=== PATIENT | female | born 1950 | race Caucasian/White ===

== ENCOUNTER 2017-03-02 07:22 | Inpatient (IN) | payer MEDICARE ==
[~2017-03-02] VITALS: Ht 180.3 cm; Wt 72.8 kg
[2017-03-02] VITALS (15 sets, daily range): BP systolic 84–115; BP diastolic 52–63; PULSE 75–114; RESP 14–20; TEMP 97.5–98.7; O2SAT 94–100
[~2017-03-02 07:22] MED LIST: URSO300
[2017-03-02] MEDS ORDERED: SODIUM CHLORIDE 0.9% FLUSH 10 ML FLUSH IVF PRN ×2 (07:45)
[2017-03-02] MEDS ORDERED: DILTIAZEM HCL 25 MG/5 ML VIAL IV PUSH ONE (07:45)
[2017-03-02] MEDS ORDERED: SODIUM CHLOR 0.9% 1000 ML INJ 1,000 ML IV ONE (07:45)
--- NOTE | 2017-03-02 07:46 | PD ---
HPI Chief Complaint: Cardiac Complaint Time Seen by Provider: 07:42 Travel History International Travel<30 days: No Contact w/Intl Traveler<30days: No Traveled to known affect area: No History of Present Illness HPI 66-year-old female with history of polymyalgia rheumatica and Mnire's disease , presents to the ER today with dizziness starting this morning, had a syncopal episode when she tried to get out of bed. She hit her head on the kitchen floor according to her . She currently states that she is not feeling well, very lightheaded. She denies any chest pains, shortness of breath, or any other symptoms. Modifying Factors: None Associated Signs & Symptoms: Dizziness, syncope Risk Factors: None PFSH Social History Alcohol Use: Yes Tobacco Use: No Allergies-Medications (Allergen,Severity, Reaction): Coded Allergies: No Known Allergies (Verified , 03/02/17) Reported Meds & Prescriptions Reported Meds & Active Scripts Active Reported Actigall (Ursodiol) 300 Mg Cap Review of Systems Except as stated in HPI: all other systems reviewed are Neg Physical Exam Narrative GENERAL: Well-developed elderly white female patient currently in moderate distress. Awake and oriented 3. SKIN: Focused skin assessment warm/dry. HEAD: Atraumatic. Normocephalic. EYES: Pupils equal and round. No scleral icterus. No injection or drainage. ENT: No nasal bleeding or discharge. Mucous membranes pink and moist. NECK: Trachea midline. No JVD. CARDIOVASCULAR: Fast and irregularly irregular. RESPIRATORY: No accessory muscle use. Clear to auscultation. Breath sounds equal bilaterally. GASTROINTESTINAL: Abdomen soft, non-tender, nondistended. Hepatic and splenic margins not palpable. MUSCULOSKELETAL: No obvious deformities. No clubbing. No cyanosis. No edema. NEUROLOGICAL: Awake and alert. No obvious cranial nerve deficits. Motor grossly within normal limits. Normal speech. PSYCHIATRIC: Appropriate mood and affect; insight and judgment normal. Data Data Last Documented VS Vital Signs Date Time Temp Pulse Resp B/P Pulse Ox O2 Delivery O2 Flow Rate FiO2 03/02/17 09:20 93 17 84/53 100 Nasal Cannula 2 03/02/17 07:34 97.5 Orders Complete Blood Count With Diff (03/02/17 07:35) Comprehensive Metabolic Panel (03/02/17 07:35) Magnesium (Mg) (03/02/17 07:35) Ckmb (Isoenzyme) Profile (03/02/17 07:35) Troponin I (03/02/17 07:35) Act Partial Throm Time (Ptt) (03/02/17 07:35) Prothrombin Time / Inr (Pt) (03/02/17 07:35) Urinalysis - C+S If Indicated (03/02/17 07:35) Chest, Single Ap (03/02/17 07:35) Ecg Monitoring (03/02/17 07:35) Iv Access Insert/Monitor (03/02/17 07:35) Oximetry (03/02/17 07:35) Sodium Chloride 0.9% Flush (Ns Flush) (03/02/17 07:45) Ct Brain W/O Iv Contrast(Rout) (03/02/17 07:42) Sodium Chlor 0.9% 1000 Ml Inj (Ns 1000 M (03/02/17 07:45) Diltiazem Inj (Cardizem Inj) (03/02/17 07:45) Diltiazem Inj (Cardizem Inj) (03/02/17 07:45) Sodium Chloride 0.9% Flush (Ns Flush) (03/02/17 07:45) Consult Neurosurgery (03/02/17 ) Ns + Kcl 20 Meq Inj (Ns + Kcl 20 Meq Inj (03/02/17 09:15) Admit Order (Ed Use Only) (03/02/17 09:29) Labs Laboratory Tests Test 03/02/17 03/02/17 08:10 08:55 White Blood Count 7.6 TH/MM3 Red Blood Count 4.44 MIL/MM3 Hemoglobin 14.0 GM/DL Hematocrit 39.8 % Mean Corpuscular Volume 89.6 FL Mean Corpuscular Hemoglobin 31.5 PG Mean Corpuscular Hemoglobin 35.2 % Concent Red Cell Distribution Width 13.2 % Platelet Count 241 TH/MM3 Mean Platelet Volume 8.8 FL Neutrophils (%) (Auto) 61.7 % Lymphocytes (%) (Auto) 27.5 % Monocytes (%) (Auto) 7.8 % Eosinophils (%) (Auto) 2.3 % Basophils (%) (Auto) 0.7 % Neutrophils # (Auto) 4.7 TH/MM3 Lymphocytes # (Auto) 2.1 TH/MM3 Monocytes # (Auto) 0.6 TH/MM3 Eosinophils # (Auto) 0.2 TH/MM3 Basophils # (Auto) 0.1 TH/MM3 CBC Comment DIFF FINAL Differential Comment Prothrombin Time 11.6 SEC Prothromb Time International 1.0 RATIO Ratio Activated Partial 26.0 SEC Thromboplast Time Sodium Level 145 MEQ/L Potassium Level 3.3 MEQ/L Chloride Level 114 MEQ/L Carbon Dioxide Level 17.9 MEQ/L Anion Gap 13 MEQ/L Blood Urea Nitrogen 20 MG/DL Creatinine 0.73 MG/DL Estimat Glomerular Filtration 80 ML/MIN Rate Random Glucose 91 MG/DL Calcium Level 7.8 MG/DL Magnesium Level 1.7 MG/DL Total Bilirubin 0.3 MG/DL Aspartate Amino Transf 19 U/L (AST/SGOT) Alanine Aminotransferase 17 U/L (ALT/SGPT) Alkaline Phosphatase 40 U/L Total Creatine Kinase 88 U/L Troponin I 0.10 NG/ML Total Protein 5.5 GM/DL Albumin 2.9 GM/DL Urine Color YELLOW Urine Turbidity CLEAR Urine pH 7.0 Urine Specific [place] 1.011 Urine Protein NEG mg/dL Urine Glucose (UA) NEG mg/dL Urine Ketones 10 mg/dL Urine Occult Blood TRACE Urine Nitrite NEG Urine Bilirubin NEG Urine Urobilinogen LESS THAN 2.0 MG/DL Urine Leukocyte Esterase NEG Urine RBC 2 /hpf Urine WBC 1 /hpf Urine Squamous Epithelial 2 /hpf Cells Urine Bacteria RARE /hpf Urine Mucus FEW /lpf Microscopic Urinalysis Comment CULT NOT INDICATED MDM Medical Decision Making Medical Screen Exam Complete: Yes Emergency Medical Condition: Yes Medical Record Reviewed: Yes Interpretation(s) EKG shows A. fib with rapid ventricular response at a rate of 130 bpm. No signs of acute ST-T changes. Laboratory Tests Test 03/02/17 08:10 Potassium Level 3.3 MEQ/L (3.5-5.1) Chloride Level 114 MEQ/L (98-107) Carbon Dioxide Level 17.9 MEQ/L (21.0-32.0) Blood Urea Nitrogen 20 MG/DL (7-18) Estimat Glomerular Filtration 80 ML/MIN (>89) Rate Calcium Level 7.8 MG/DL (8.5-10.1) Alkaline Phosphatase 40 U/L (45-117) Troponin I 0.10 NG/ML (0.02-0.05) Total Protein 5.5 GM/DL (6.4-8.2) Albumin 2.9 GM/DL (3.4-5.0) Last [address] 03/02/1742 Signed Impressions: Service Date/Time: Thursday, March 02, 2017 08:33 - CONCLUSION: 1. Minimal probable subarachnoid hemorrhage right frontal extra-axial space. 2. No midline shift. 3. Nonspecific white matter changes. Alex Evans MD Chest X-Ray 03/02/1735 Signed Impressions: Service Date/Time: Thursday, March 02, 2017 07:48 - CONCLUSION: No acute disease. Alex Evans MD Differential Diagnosis Dizziness, syncopedysrhythmias versus dehydration versus metabolic issues versus acute intracranial processes versus Mnire's disease Narrative Course Lab work shows mild hypokalemia potassium was given IV in the ER. EKG shows A. fib with rapid ventricular response, Cardizem was given with good rate control. IV fluids were given for her hypotension. Her CAT scan shows acute intracranial subarachnoid bleed which is noted to be small. Case was discussed with Dr. Hererra who would like the patient admitted to critical care unit and with consult to him. Case was discussed with Dr. Al for admission to critical care unit. Aggregate critical care time was 25 minutes. Time to perform other separately billable procedures was not included in the critical care time. My time did not include minutes spent treating any other patients simultaneously or on activities that did not directly contribute to the patient's treatment. The services I provided to this patient were to treat and/or prevent clinically significant deterioration that could result in: Worsening dysrhythmias, ICH, herniation, I provided critical care services requiring my management, as noted below: Chart data review, documentation time, medication orders and management, vital sign assessments/reviewing monitor data, ordering and reviewing lab tests, ordering and interpreting/reviewing x-rays and diagnostic studies, care of the patient and discussion of the patient with the admitting physicians. Diagnosis Primary Impression: Syncope Additional Impressions: New onset a-fib Subarachnoid hemorrhage Admitting Information Admitting Physician Requests: Admit Lucia Corley MD March 02, 2017 07:46
--- NOTE | 2017-03-02 08:37 | RADRPT ---
EXAM DATE/TIME: 03/02/2017 07:48 [facility] COMPARISON: No previous studies available for comparison. INDICATIONS : Palpitations, fever, nausea, and dizziness. MEDICAL HISTORY : None. SURGICAL HISTORY : None. ENCOUNTER: Initial ACUITY: 1 day PAIN SCORE: 0/10 LOCATION: Bilateral chest FINDINGS: A single view of the chest demonstrates the lungs to be symmetrically aerated without evidence of mas s, infiltrate or effusion. The cardiomediastinal contours are unremarkable. Osseous structures are intact. CONCLUSION: No acute disease. Alex Evans MD on March 02, 2017 at 8:35 Board Certified Radiologist. This report was verified electronically.
--- NOTE | 2017-03-02 08:45 | RADRPT ---
EXAM DATE/TIME: 03/02/2017 08:33 [facility] COMPARISON: No previous studies available for comparison. INDICATIONS : Syncope along with fall last night. Hit back of head. RADIATION DOSE: 38.28 CTDIvol (mGy) MEDICAL HISTORY : None SURGICAL HISTORY : None. ENCOUNTER: Initial ACUITY: 1 day PAIN SCALE: 0/10 LOCATION: cranial TECHNIQUE: Multiple contiguous axial images were obtained of the head. Using automated exposure control and adj ustment of the mA and/or kV according to patient size, radiation dose was kept as low as reasonably a chievable to obtain optimal diagnostic quality images. FINDINGS: CEREBRUM: Minimal extra-axial high density in the right frontal extra-axial space may be some minimal subarachn oid hemorrhage. Scattered areas of low attenuation throughout the white matter. The ventricles are no rmal for age. No evidence of midline shift, mass lesion, hemorrhage or acute infarction. No extra-a xial fluid collections are seen. POSTERIOR FOSSA: The cerebellum and brainstem are intact. The 4th ventricle is midline. The cerebellopontine angle i s unremarkable. EXTRACRANIAL: The visualized portion of the orbits is intact. SKULL: The calvaria is intact. No evidence of skull fracture. CONCLUSION: 1. Minimal probable subarachnoid hemorrhage right frontal extra-axial space. 2. No midline shift. 3. Nonspecific white matter changes. Alex Evans MD on March 02, 2017 at 8:42 Board Certified Radiologist. This report was verified electronically.
[2017-03-02] MEDS: DILTIAZEM INJ 125 MG in SODIUM CHLORIDE 0.9% INJ 100 ML IV SCH ×2 (08:46→10:03)
[2017-03-02 08:47] LABS: AUTOMATED NEUTROPHIL # 4.7 TH/MM3 (1.8-7.7); BASOPHIL # 0.1 TH/MM3 (0-0.2); BASOPHIL % 0.7 % (0.0-2.0); EOSINOPHIL # 0.2 TH/MM3 (0-0.4); EOSINOPHIL % 2.3 % (0.0-4.0); HEMATOCRIT 39.8 % (35.0-46.0); HEMO FLAGS DIFF FINAL; LYMPH % 27.5 % (9.0-44.0); LYMPHOCYTE # 2.1 TH/MM3 (1.0-4.8); MEAN CELL VOLUME 89.6 FL (80.0-100.0); MEAN CORPUSCULAR HEMOGLOBIN 31.5 PG (27.0-34.0); MEAN CORPUSCULAR HGB CONC 35.2 % (32.0-36.0); MONO % 7.8 % (0.0-8.0); NEUT % 61.7 % (16.0-70.0); PLATELET COUNT 241 TH/MM3 (150-450); RED BLOOD COUNT 4.44 MIL/MM3 (4.00-5.30); RED CELL DISTRIBUTION WIDTH 13.2 % (11.6-17.2); WHITE BLOOD COUNT 7.6 TH/MM3 (4.0-11.0)
[2017-03-02 08:55] LABS: PROTHROMBIN TIME - PATIENT 11.6 SEC (9.8-11.6)
[2017-03-02 09:03] LABS: ANION GAP 13 MEQ/L (5-15); AST (GOT) 19 U/L (15-37); BICARBONATE 17.9 MEQ/L (21.0-32.0); BLOOD UREA NITROGEN 20 MG/DL (7-18); CHLORIDE 114 MEQ/L (98-107); GLOMERULAR FILTRATION RATE 80 ML/MIN (>89); MAGNESIUM 1.7 MG/DL (1.5-2.5); POTASSIUM 3.3 MEQ/L (3.5-5.1); SODIUM (NA) 145 MEQ/L (136-145)
[2017-03-02 09:08] LABS: ALKALINE PHOSPHATASE 40 U/L (45-117); ALT (GPT) 17 U/L (10-53); TOTAL BILIRUBIN ADULT 0.3 MG/DL (0.2-1.0)
[2017-03-02 09:09] LABS: CREATINE KINASE 88 U/L (26-192)
[2017-03-02 09:18] LABS: BACTERIA, URINE RARE /hpf; BLOOD, URINE TRACE (NEG); COMMENT (UR) CULT NOT INDICATED; CULTURE IF INDICATED CULT NOT INDICATED; GLUCOSE,URINE NEG (NEG); KETONE, URINE 10 mg/dL (NEG); MUCUS URINE FEW /lpf (OCC); NITRITE,URINE NEG (NEG); SQUAMOUS EPITHELIAL CELL URINE 2 /hpf (0-5); URINE COLOR YELLOW (YELLW/STRAW)
[2017-03-02] MEDS: NS + KCL 20 MEQ INJ 1,000 ML IV SCH ×2 (09:27→12:44)
[2017-03-02] MEDS ORDERED: MAGNESIUM SULFATE INJ 2 GM in SODIUM CHLORIDE 0.9% INJ 96 ML IV PRN (09:30)
[2017-03-02] MEDS ORDERED: POTASSIUM CHLOR 40 MEQ PREMIX 100 ML IV PRN ×2 (09:30)
[2017-03-02] MEDS ORDERED: SODIUM PHOSPHATE INJ 30 MMOL in SODIUM CHLOR 0.9% 250 ML INJ 240 ML IV PRN (09:30)
[2017-03-02] MEDS ORDERED: POTASSIUM PHOSPHATE MONOBASIC 500 MG TAB PO PRN (09:30)
[2017-03-02] MEDS ORDERED: MAGNESIUM SULFATE INJ 4 GM in SODIUM CHLORIDE 0.9% INJ 92 ML IV PRN (09:30)
[2017-03-02] MEDS ORDERED: POTASSIUM CHLOR 20 MEQ PREMIX 100 ML IV PRN ×2 (09:30)
[2017-03-02] MEDS ORDERED: MISCELLANEOUS NURSING INFORMATION XX SCH (09:30)
[2017-03-02] MEDS ORDERED: CHLORHEXIDINE GLUCONATE 2 % 1 PACK (2 CLOTHS) TOP PRN (09:30)
[2017-03-02] MEDS ORDERED: RESP: ALBUTEROL 2.5 MG/IPRATROPIUM 0.5 MG NEB (PRN) INH (09:30)
[2017-03-02] MEDS ORDERED: DEXTROSE 50% IN WATER 50 ML VIAL(D50) IV PUSH PRN (09:30)
[2017-03-02] MEDS ORDERED: POTASSIUM PHOSPHATE MONOBASIC 500 MG TAB PO/TUBE PRN (09:30)
[2017-03-02] MEDS ORDERED: MAGNESIUM OXIDE 400 MG TAB PO PRN (09:30)
--- NOTE | 2017-03-02 09:39 | HHI.HP ---
[facility] Service Critical Care Medicine Primary Care Physician Trevin Fuller MD Admission Diagnosis syncope/new-onset A. fib/SAH Diagnosis: Chief Complaint: Head pain Travel History International Travel<30 Days: No Contact w/Intl Traveler <30 Da: No Traveled to Known Affected Are: No History of Present Illness This is a 66-year-old female with a relatively unremarkable past medical history who presents after syncopal fall. She reports that she was up early this morning and felt dizzy, and then passed out and hit her head. Her reports hearing a loud noise and coming in finding her way found on the floor. She was alert and oriented after the event. She was brought in by EMS. In emergency department she was found to be in new onset atrial fibrillation with rapid ventricular response. She was started on a diltiazem drip. She was taken for head CT and found to have a small traumatic subarachnoid hemorrhage. Critical-care medicine is consulted to evaluate and manage her new onset atrial fibrillation and her traumatic subarachnoid hemorrhage. I evaluated the patient and she denies chest pain, shortness of breath, prior episodes of palpitations or syncope. She does endorse headache and nausea. Denies vomiting or constipation diarrhea Review of Systems Constitutional: DENIES: Diaphoretic episodes, Fatigue, Weight gain, Weight loss , Chills Eyes: DENIES: Blurred vision, Vision loss, Photosensitivity Respiratory: DENIES: Cough, Snoring, Wheezing, Sputum production, Shortness of breath Cardiovascular: COMPLAINS OF: Syncope, DENIES: Chest pain, Palpitations, Dyspnea on Exertion, PND, Lower Extremity Edema, Orthopnea Gastrointestinal: COMPLAINS OF: Nausea, DENIES: Abdominal pain, Bloody stools , Constipation, Diarrhea, Vomiting Neurologic: COMPLAINS OF: Headache, DENIES: Abnormal gait, Localized weakness , Paresthesias Past Family Social History Allergies: Coded Allergies: No Known Allergies (Verified , 03/02/17) Past Medical History None Past Surgical History None Reported Medications None Active Ordered Medications See MAR Family History Reviewed and found to be noncontributory to her acute illness Social History Occasional alcohol use Physical Exam Vital Signs Vital Signs Date Time Temp Pulse Resp B/P Pulse Ox O2 Delivery O2 Flow Rate FiO2 03/02/17 09:20 93 17 84/53 100 Nasal Cannula 2 03/02/17 09:14 93 17 84/53 100 Nasal Cannula 2 03/02/17 08:47 98 16 97/56 100 Nasal Cannula 2 03/02/17 08:23 84 16 88/52 100 Nasal Cannula 2 03/02/17 07:51 100 Room Air 03/02/17 07:51 143 03/02/17 07:34 97.5 104 16 97/63 99 Physical Exam GENERAL: Middle-aged female lying in bed, mild distress due to nausea HEENT: There is small area of ecchymosis on her for head. Pupils equal, round, reactive, conjugate. Mucous membranes are moist. NECK: No JVD. Trachea midline. CHEST: Unlabored. Equal chest rise.. CARDIOVASCULAR: Normal rate, irregularly irregular rhythm. Atrial fibrillation by telemetry. ABDOMEN: Soft, nontender, nondistended. No guarding. MUSCULOSKELETAL: No Peripheral edema. Distal pulses 2+. NEUROLOGICAL: RASS 0. CAM -. GCS 15. No gross focal motor or sensory deficits. Laboratory Laboratory Tests Test 03/02/17 03/02/17 08:10 08:55 White Blood Count 7.6 Red Blood Count 4.44 Hemoglobin 14.0 Hematocrit 39.8 Mean Corpuscular Volume 89.6 Mean Corpuscular Hemoglobin 31.5 Mean Corpuscular Hemoglobin 35.2 Concent Red Cell Distribution Width 13.2 Platelet Count 241 Mean Platelet Volume 8.8 Neutrophils (%) (Auto) 61.7 Lymphocytes (%) (Auto) 27.5 Monocytes (%) (Auto) 7.8 Eosinophils (%) (Auto) 2.3 Basophils (%) (Auto) 0.7 Neutrophils # (Auto) 4.7 Lymphocytes # (Auto) 2.1 Monocytes # (Auto) 0.6 Eosinophils # (Auto) 0.2 Basophils # (Auto) 0.1 CBC Comment DIFF FINAL Differential Comment Prothrombin Time 11.6 Prothromb Time International 1.0 Ratio Activated Partial 26.0 Thromboplast Time Sodium Level 145 Potassium Level 3.3 Chloride Level 114 Carbon Dioxide Level 17.9 Anion Gap 13 Blood Urea Nitrogen 20 Creatinine 0.73 Estimat Glomerular Filtration 80 Rate Random Glucose 91 Calcium Level 7.8 Magnesium Level 1.7 Total Bilirubin 0.3 Aspartate Amino Transf 19 (AST/SGOT) Alanine Aminotransferase 17 (ALT/SGPT) Alkaline Phosphatase 40 Total Creatine Kinase 88 Troponin I 0.10 Total Protein 5.5 Albumin 2.9 Urine Color YELLOW Urine Turbidity CLEAR Urine pH 7.0 Urine Specific [place] 1.011 Urine Protein NEG Urine Glucose (UA) NEG Urine Ketones 10 Urine Occult Blood TRACE Urine Nitrite NEG Urine Bilirubin NEG Urine Urobilinogen LESS THAN 2.0 Urine Leukocyte Esterase NEG Urine RBC 2 Urine WBC 1 Urine Squamous Epithelial 2 Cells Urine Bacteria RARE Urine Mucus FEW Microscopic Urinalysis Comment CULT NOT INDICATED Result Diagram: 03/02/17 0810 03/02/17 0810 Imaging Last Impressions Head CT 03/02/17 0742 Signed Impressions: Service Date/Time: Thursday, March 02, 2017 08:33 - CONCLUSION: 1. Minimal probable subarachnoid hemorrhage right frontal extra-axial space. 2. No midline shift. 3. Nonspecific white matter changes. Alex Evans MD Chest X-Ray 03/02/1735 Signed Impressions: Service Date/Time: Thursday, March 02, 2017 07:48 - CONCLUSION: No acute disease. Alex Evans MD Assessment and Plan Assessment and Plan Assessment: This is a 66-year-old female with unremarkable past medical history who now presents with new onset atrial fibrillation with rapid ventricular response as well as a very small traumatic subarachnoid hemorrhage. We will admit her to the intensive care unit for close monitoring. She is critically ill this time given her high risk for worsening of her bleeding. Plan: 1. Traumatic Subarachnoid hemorrhage -- frequent neuro checks -- repeat head CT in 24h -- neurosurgery consult: Dr. Herrera -- no anticoagulants for at least 7 days -- bedside swallow evaluation -- keppra 500mg po q12h x 7 days -- pepcid 2. New-onset atrial fibrillation with rapid ventricular response -- CHADS-VASc score 2. -- cannot anticoagulate for at least 7 days given traumatic SAH -- diltiazem drip, wean as tolerated for goal HR < 110. -- start diltiazem 30mg po q6h -- f/u thyroid function tests -- f/u UDS -- f/u 2d echo -- telemetry -- trend troponins advance diet as tolerated after bedside swallow SCDs, no pharmacologic dvt prophylaxis given head bleed. Dispo: to the ICU for close monitoring. tomorrow, if she remains stable with stable head CT, may transfer to floor with hospitalist following This patient remains critically ill with one or more organ systems which are or may become a threat to life. I have spent in excess of 38 minutes discontinuously in the care and management of this patient. This time is exclusive of procedures, and includes, but is not limited to, evaluation of the patient, review of the medical record, discussions with family, consultants, nursing staff, or respiratory therapy, and documentation in the medical record. Kapil Al MD March 02, 2017 09:39
[2017-03-02] MEDS ORDERED: PRED5TAB PO (10:20)
[2017-03-02 10:33] LABS: FREE T4 1.11 NG/DL (0.76-1.46)
[2017-03-02] MEDS: INSULIN NovoLIN REGULAR SUPPLEMENTAL SCALE SQ SCH ×3 (11:00→21:00)
[2017-03-02] MEDS: SODIUM CHLOR 0.9% 1000 ML INJ 1,000 ML IV SCH (11:03)
[2017-03-02] MEDS: ONDANSETRON HCL 4 MG/2 ML VIAL IV PRN (11:05)
[2017-03-02 11:31] LABS: AMPHETAMINE, URINE NEG (NEG); BARBITURATES, URINE NEG (NEG); COCAINE, URINE NEG (NEG)
[2017-03-02] MEDS: DILTIAZEM HCL 60 MG TAB PO SCH ×2 (12:35→17:30)
[2017-03-02] MEDS: MORPHINE SULFATE 4 MG/ML INJ IV PRN ×2 (12:35→17:30)
--- NOTE | 2017-03-02 17:37 | PD.CONS ---
[facility] Service Neurosurg Consult Requested By Steph SON Reason for Consult [facility] Primary Care Physician Trevin Fuller MD History of Present Illness This is a 66-year-old female with unremarkable past medical history who presents after syncopal fall. She reports that she was up and felt dizzy, and then passed out and hit her head. Seizure activity reported. No tongue biting. No incontinence of stool or urine. No tonic-clonic movements. Her reports hearing a loud noise and found her on the floor. She was alert and oriented after the event. She was brought in by EMS. In emergency department she was found to be in new onset atrial fibrillation with rapid ventricular response. She was started on a diltiazem drip. She was taken for head CT and found to have traumatic subarachnoid hemorrhage. She denies chest pain, shortness of breath, prior episodes of palpitations or syncope. She does endorse headache and nausea. Denies vomiting or constipation diarrhea. She denies weakness of her upper or lower extremities. Neurosurgical consultation was requested Review of Systems Constitutional: DENIES: Diaphoretic episodes, Fatigue, Weight gain, Weight loss , Chills Eyes: DENIES: Blurred vision, Vision loss, Photosensitivity Respiratory: DENIES: Cough, Snoring, Wheezing, Sputum production, Shortness of breath Cardiovascular: COMPLAINS OF: Syncope, DENIES: Chest pain, Palpitations, Dyspnea on Exertion, PND, Lower Extremity Edema, Orthopnea Gastrointestinal: COMPLAINS OF: Nausea, DENIES: Abdominal pain, Bloody stools , Constipation, Diarrhea, Vomiting Neurologic: COMPLAINS OF: Headache, DENIES: Abnormal gait, Localized weakness , Paresthesias Past Family Social History Allergies: Coded Allergies: No Known Allergies (Verified , 03/02/17) Past Medical History None Past Surgical History None Reported Medications None Active Ordered Medications Current Medications Sodium Chloride 2 ml 2 ml UNSCH PRN IVF FLUSH AFTER USING IV ACCESS; Start at 07:45; Stop 03/06/17 at 13:09; Status DC Sodium Chloride 1,000 ml @ 999 mls/hr BOLUS ONCE IV Last administered on 03/02t 08:11; Start 03/02/17 at 07:45; Stop 03/02/17 at 08:45; Status DC Diltiazem HCl/ Sodium Chloride (Cardizem Inj/NS Inj) 125 ml @ 0 mls/hr TITRATE IV Last administered on 03/02/17 10:03; Start 03/02/17 at 07:45; Stop at 13:49; Status DC Diltiazem HCl (Cardizem Inj) 18 mg BOLUS ONCE IV PUSH Last administered on 08:12; Start 03/02/17 at 07:45; Stop 03/02/17 at 07:46; Status DC Sodium Chloride 2 ml 2 ml UNSCH PRN IVF FLUSH AFTER USING IV ACCESS; Start at 07:45; Stop 03/06/17 at 13:09; Status DC Potassium Chloride/Sodium Chloride (NS + KCl 20 Meq Inj) 1,000 ml @ 125 mls/hr Q8H IV Last administered on 03/04/17 01:15; Start 03/02/17 at 09:15; Stop at 11:59; Status DC Magnesium Oxide 800 mg 800 mg UNSCH PRN PO For Magnesium 1.2 - 1.6 mg/dL; Start 03/02/17 at 09:30; Stop 03/06/17 at 13:09; Status DC Magnesium Sulfate 4 gm/Sodium Chloride 100 ml @ 50 mls/hr UNSCH PRN IV For Magnesium 0.9 - 1.1 mg/dL; Start 03/02/17 at 09:30; Stop 03/06/17 at 13:09; Status DC Magnesium Sulfate 2 gm/Sodium Chloride 100 ml @ 50 mls/hr UNSCH PRN IV For Magnesium 1.2 - 1.6 mg/dL; Start 03/02/17 at 09:30; Stop 03/06/17 at 13:09; Status DC Potassium Chloride 100 ml @ 50 mls/hr Q2H PRN IV For Potassium 2.8 - 3.2 mEq/L ; Start 03/02/17 at 09:30; Stop 03/04/17 at 15:36; Status DC Potassium Chloride 100 ml @ 50 mls/hr Q2H PRN IV For Potassium 3.3 - 3.5 mEq/ L Last administered on 03/02/17 12:45; Start 03/02/17 at 09:30; Stop 03/04/17 at 15:36; Status DC Potassium Chloride 100 ml @ 50 mls/hr Q2H PRN IV For Potassium 2.8 - 3.2 mEq/L ; Start 03/02/17 at 09:30; Stop 03/04/17 at 15:36; Status DC Potassium Chloride (KCl 40 Meq Premix Inj) 100 ml @ 25 mls/hr UNSCH PRN IV For Potassium 3.3 - 3.5 mEq/L; Start 03/02/17 at 09:30; Stop 03/04/17 at 15:36; Status DC Potassium Phosphate (K-Phos) 2,000 mg Q4H PRN PO For Phosphorus < 2.5 mg/dL; Start 03/02/17 at 09:30; Stop 03/06/17 at 13:09; Status DC Potassium Phosphate 2000 mg 2,000 mg UNSCH PRN PO/TUBE SEE LABEL COMMENTS; Start 03/02/17 at 09:30; Stop 03/06/17 at 13:09; Status DC Sodium Phosphate/ Sodium Chloride (Sodium Phosphate Inj/NS 250 ml Inj) 250 ml @ 42 mls/hr UNSCH PRN IV For Phosphorus < 2.5 mg/dL; Start 03/02/17 at 09:30; Stop 03/06/17 at 13:09; Status DC Dextrose (D50w (Vial) Inj) 25 ml UNSCH PRN IV PUSH HYPOGLYCEMIA-SEE COMMENTS; Start 03/02/17 at 09:30; Stop 03/06/17 at 13:09; Status DC Insulin Human Regular 1 1 ACHS AND 3AM SQ ; Start 03/02/17 at 11:00; Stop 03/06 at 13:09; Status DC Sodium Chloride (NS 1000 ml Inj) 1,000 ml @ 84 mls/hr [id number] IV Last administered on 03/05/17 09:22; Start 03/02/17 at 09:29; Stop 03/06/17 at 13:09 ; Status DC Acetaminophen (Tylenol) 650 mg Q6H PRN PO FEVER >101F Last administered on 03/04 09:10; Start 03/02/17 at 09:30; Stop 03/06/17 at 13:09; Status DC Morphine Sulfate (Morphine Inj) 2 mg Q2H PRN IV PAIN SCALE 6 TO 10 Last administered on 03/03/17 08:15; Start 03/02/17 at 09:30; Stop 03/06/17 at 13:09 ; Status DC Famotidine (Pepcid) 20 mg Q12HR PO Last administered on 03/06/17 08:31; Start 03/02/17 at 21:00; Stop 03/06/17 at 13:09; Status DC Ondansetron HCl (Zofran Inj) 4 mg Q6H PRN IV NAUSEA OR VOMITING Last administered on 03/03/17 08:15; Start 03/02/17 at 09:30; Stop 03/06/17 at 13:09 ; Status DC Albuterol/ Ipratropium (Duoneb Neb) 1 ampule Q2HR NEB PRN INH WHEEZING; Start 03/02/17 at 09:30; Stop 03/06/17 at 13:09; Status DC Miscellaneous Information 1 Q361D XX Last administered on 03/02/17 09:30; Start 03/02/17 at 09:30; Stop 03/06/17 at 13:09; Status DC Chlorhexidine Gluconate (Chlorhexidine 2% Cloth) 3 pack Taper DAILY@04 TOP Last administered on 03/04/17 04:00; Start 03/03/17 at 04:00; Stop 03/06/17 at 13:09; Status DC Chlorhexidine Gluconate (Chlorhexidine 2% Cloth) 3 pack UNSCH PRN TOP HYGIENIC CARE; Start 03/02/17 at 09:30; Stop 03/06/17 at 13:09; Status DC Diltiazem HCl (Cardizem) 60 mg Q6HR PO Last administered on 03/06/17 11:44; Start 03/02/17 at 12:00; Stop 03/06/17 at 13:09; Status DC Levetriacetam (Keppra) 500 mg Q12HR PO Last administered on 03/06/17 08:31; Start 03/02/17 at 21:00; Stop 03/06/17 at 13:09; Status DC Gabapentin (Neurontin) 300 mg TID PO Last administered on 03/06/17 11:44; Start 03/04/17 at 13:00; Stop 03/06/17 at 13:09; Status DC Prednisone (Deltasone) 7.5 mg DAILY PO Last administered on 03/06/17 08:31; Start 03/04/17 at 12:00; Stop 03/06/17 at 13:09; Status DC Miscellaneous (Pill Splitter) 1 ea UNSCH PRN OTHER SEE LABEL COMMENTS Last administered on 03/04/17 17:45; Start 03/04/17 at 12:00; Stop 03/06/17 at 13:09 ; Status DC Acetaminophen/ Hydrocodone Bitart ([place] 5-325 Mg) 1 tab Q4H PRN PO SEE LABEL COMMENTS Last administered on 03/06/17 09:44; Start 03/04/17 at 15:00; Stop at 13:09; Status DC Acetaminophen/ Hydrocodone Bitart ([place] 5-325 Mg) 2 tab Q4H PRN PO SEE LABEL COMMENTS Last administered on 03/05/17 02:43; Start 03/04/17 at 15:00; Stop at 13:09; Status DC Potassium Chloride (KCl) 40 meq ONCE ONCE PO Last administered on 03/05/17 09 :20; Start 03/05/17 at 08:45; Stop 03/05/17 at 08:46; Status DC Potassium Chloride (KCl) 20 meq ONCE ONCE PO Last administered on 03/05/17 12 :09; Start 03/05/17 at 11:00; Stop 03/05/17 at 11:01; Status DC Family History Reviewed and found to be noncontributory Social History Occasional alcohol use Denies tobacco abuse. Denies illicit drug use Physical Exam Vital Signs Vital Signs Date Time Temp Pulse Resp B/P Pulse Ox O2 Delivery O2 Flow Rate FiO2 03/02/17 11:06 112 16 113/52 99 Nasal Cannula 2 03/02/17 10:16 104 16 90/54 98 Nasal Cannula 2 03/02/17 09:20 93 17 84/53 100 Nasal Cannula 2 03/02/17 09:14 93 17 84/53 100 Nasal Cannula 2 03/02/17 08:47 98 16 97/56 100 Nasal Cannula 2 03/02/17 08:23 84 16 88/52 100 Nasal Cannula 2 03/02/17 07:51 100 Room Air 03/02/17 07:51 143 03/02/17 07:34 97.5 104 16 97/63 99 Physical Exam The patient is alert, awake and oriented to time, place and person. Speech is fluent. Cranial nerve examination: pupils to be equal, round and reactive to light. Extra-ocular movements are intact. Facial motor and sensory function are normal and symmetrical. Gross hearing appears intact. Sternocleidomastoid and trapezius muscles are symmetrical. Other cranial nerves are intact. Neck is soft and supple with a good range of motion without pain. Muscle strength is normal in all muscle groups of both upper and lower extremities. Sensory examination is intact to light touch and pin prick in both the upper and lower extremities. Deep tendon reflexes are symmetrical in both upper and lower extremities. There is a bilateral plantar flexion response. Cerebellar examination is unremarkable, without deficits. Laboratory Laboratory Tests Test 03/02/17 03/02/17 03/02/17 03/02/17 08:10 08:55 12:30 14:33 White Blood Count 7.6 Red Blood Count 4.44 Hemoglobin 14.0 Hematocrit 39.8 Mean Corpuscular Volume 89.6 Mean Corpuscular Hemoglobin 31.5 Mean Corpuscular Hemoglobin 35.2 Concent Red Cell Distribution Width 13.2 Platelet Count 241 Mean Platelet Volume 8.8 Neutrophils (%) (Auto) 61.7 Lymphocytes (%) (Auto) 27.5 Monocytes (%) (Auto) 7.8 Eosinophils (%) (Auto) 2.3 Basophils (%) (Auto) 0.7 Neutrophils # (Auto) 4.7 Lymphocytes # (Auto) 2.1 Monocytes # (Auto) 0.6 Eosinophils # (Auto) 0.2 Basophils # (Auto) 0.1 CBC Comment DIFF FINAL Differential Comment Prothrombin Time 11.6 Prothromb Time International 1.0 Ratio Activated Partial 26.0 Thromboplast Time Sodium Level 145 Potassium Level 3.3 Chloride Level 114 Carbon Dioxide Level 17.9 Anion Gap 13 Blood Urea Nitrogen 20 Creatinine 0.73 Estimat Glomerular Filtration 80 Rate Random Glucose 91 Calcium Level 7.8 Magnesium Level 1.7 Total Bilirubin 0.3 Aspartate Amino Transf 19 (AST/SGOT) Alanine Aminotransferase 17 (ALT/SGPT) Alkaline Phosphatase 40 Total Creatine Kinase 88 Troponin I 0.10 0.07 Total Protein 5.5 Albumin 2.9 Free Thyroxine 1.11 Thyroid Stimulating Hormone 2.520 3rd Gen Urine Color YELLOW Urine Turbidity CLEAR Urine pH 7.0 Urine Specific [place] 1.011 Urine Protein NEG Urine Glucose (UA) NEG Urine Ketones 10 Urine Occult Blood TRACE Urine Nitrite NEG Urine Bilirubin NEG Urine Urobilinogen LESS THAN 2.0 Urine Leukocyte Esterase NEG Urine RBC 2 Urine WBC 1 Urine Squamous Epithelial 2 Cells Urine Bacteria RARE Urine Mucus FEW Microscopic Urinalysis Comment CULT NOT INDICATED Urine Opiates Screen NEG Urine Barbiturates Screen NEG Urine Amphetamines Screen NEG Urine Benzodiazepines Screen NEG Urine Cocaine Screen NEG Urine Cannabinoids Screen NEG Nasal Screen MRSA (PCR) MRSA NOT DETECTED Result Diagram: 03/02/17 0810 03/02/17809 Imaging Last Impressions Head CT 03/03/17 06 Signed Impressions: Service Date/Time: February 04:32 - CONCLUSION: Stable hypodensities in the white matter tracts bilaterally nonspecific finding. Very minimal increased density in the extra-axial right frontal supraorbital region could be a tiny amount of subarachnoid hemorrhage actually less impressive than the very subtle amount seen on the previous study Peter Morrison MD Chest X-Ray 03/02/17 0735 Signed Impressions: Service Date/Time: Thursday, March 02, 2017 07:48 - CONCLUSION: No acute disease. Alex Evans MD Attending Statement Syncope felt to be secondary to dAfib with RVR . May need echocardiogram, carotid Duplex, EEG, and Holter. Continue neuro checks in a serial fashion. PT and OT evaluation Nutrition. diet Renal. monitor closely urine output, BUN and creatinine Endocrine. Monitor serial Acu checks and SSI as needed in detail ID monitor for signs of infection Renal. slight acute kidney injury. She again has acute kidney injury with elevated Cr above baseline.. Monitor urine output BUN and creatinine and creatinine Protonix for stress ulcer prophylaxis [place] hose and SCD's for DVT prophylaxis Trever Herrera MD March 02, 2017 17:37
--- NOTE | 2017-03-02 19:25 | EKG ---
Date Performed: 03/02/2017 Time Performed: 07:32:15 PTAGE: 66 years EKG: ATRIAL FIBRILLATION WITH RAPID VENTRICULAR RESPONSE ABNORMAL RHYTHM ECG NO PREVIOUS TRACING DOCTOR: Peggy Steiner Interpretating Date/Time 03/02/2017 19:23:01
[2017-03-02] MEDS: levETIRAcetam 500 MG TAB PO SCH (21:15)
[2017-03-02] MEDS: FAMOTIDINE 20 MG TAB PO SCH (21:15)
[2017-03-02 23:21] LABS: POTASSIUM 4.2 MEQ/L (3.5-5.1)
[2017-03-03] VITALS (12 sets, daily range): BP systolic 98–131; BP diastolic 56–68; PULSE 60–80; RESP 15–22; TEMP 98.1–99.3; O2SAT 95–100
[2017-03-03] MEDS: DILTIAZEM HCL 60 MG TAB PO SCH ×4 (00:24→18:12)
[2017-03-03] MEDS: INSULIN NovoLIN REGULAR SUPPLEMENTAL SCALE SQ SCH ×5 (03:00→20:50)
[2017-03-03 03:19] LABS: HEMATOCRIT 37.6 % (35.0-46.0); MEAN CELL VOLUME 91.7 FL (80.0-100.0); MEAN CORPUSCULAR HEMOGLOBIN 31.4 PG (27.0-34.0); MEAN CORPUSCULAR HGB CONC 34.3 % (32.0-36.0); PLATELET COUNT 215 TH/MM3 (150-450); RED CELL DISTRIBUTION WIDTH 13.9 % (11.6-17.2); REVIEW FLAG FINAL; WHITE BLOOD COUNT 7.7 TH/MM3 (4.0-11.0)
[2017-03-03 03:26] LABS: BICARBONATE 25.1 MEQ/L (21.0-32.0); POTASSIUM 4.1 MEQ/L (3.5-5.1)
[2017-03-03] MEDS: CHLORHEXIDINE GLUCONATE 2 % 1 PACK (2 CLOTHS) TOP SCH (04:00)
--- NOTE | 2017-03-03 04:45 | RADRPT ---
EXAM DATE/TIME: 03/03/2017 04:32 [facility] COMPARISON: CT BRAIN W/O CONTRAST, March 02, 2017, 8:33. INDICATIONS : Follow up hemorrhage. RADIATION DOSE: 35.67 CTDIvol (mGy) MEDICAL HISTORY : None SURGICAL HISTORY : None. ENCOUNTER: Subsequent ACUITY: 1 day PAIN SCALE: 2/10 LOCATION: cranial TECHNIQUE: Multiple contiguous axial images were obtained of the head. Using automated exposure control and adj ustment of the mA and/or kV according to patient size, radiation dose was kept as low as reasonably a chievable to obtain optimal diagnostic quality images. FINDINGS: CEREBRUM: In the right frontal supraorbital extra-axial space there few areas of very minimal increased density could be some subarachnoid hemorrhage actually less impressive than the previous study . The ventric les are normal for age. No evidence of midline shift, mass lesion, hemorrhage or acute infarction. D eep white matter tracks remain hypodense bilaterally No extra-axial fluid collections are seen. POSTERIOR FOSSA: The cerebellum and brainstem are intact. The 4th ventricle is midline. The cerebellopontine angle i s unremarkable. EXTRACRANIAL: The visualized portion of the orbits is intact. SKULL: The calvaria is intact. No evidence of skull fracture. CONCLUSION: Stable hypodensities in the white matter tracts bilaterally nonspecific finding. Very minimal increas ed density in the extra-axial right frontal supraorbital region could be a tiny amount of subarachnoi d hemorrhage actually less impressive than the very subtle amount seen on the previous study Peter Morrison MD on March 03, 2017 at 4:42 Board Certified Radiologist. This report was verified electronically.
--- NOTE | 2017-03-03 07:42 | HHI.PR ---
Subjective Remarks internet network specialist notes: This is a 66-year-old female with a relatively unremarkable past medical history who presents after syncopal fall. She reports that she was up early this morning and felt dizzy, and then passed out and hit her head. Her reports hearing a loud noise and coming in finding her way found on the floor. She was alert and oriented after the event. She was brought in by EMS. In emergency department she was found to be in new onset atrial fibrillation with rapid ventricular response. She was started on a diltiazem drip. She was taken for head CT and found to have a small traumatic subarachnoid hemorrhage. Critical-care medicine is consulted to evaluate and manage her new onset atrial fibrillation and her traumatic subarachnoid hemorrhage. I evaluated the patient and she denies chest pain, shortness of breath, prior episodes of palpitations or syncope. She does endorse headache and nausea. Denies vomiting or constipation diarrhea 03/03: Seen in her bedroom, continue followed by Neurosurgery, not yet cleared for discharge, found with Atrial fibrillation in ER, at this time stable her CHADS-VASc score is 2, and is in sinus rhythm, No nausea, vomit or diarrhea, Objective Vital Signs Date Time Temp Pulse Resp B/P Pulse Ox O2 Delivery O2 Flow Rate FiO2 03/03/17 06:00 72 03/03/17 04:00 69 03/03/17 04:00 98.1 69 18 115/68 98 03/03/17 02:00 70 03/03/17 00:00 80 03/03/17 00:00 98.6 80 22 118/59 98 03/02/17 22:00 75 03/02/17 20:00 77 03/02/17 19:00 98.2 77 18 115/56 97 03/02/17 19:00 97 Nasal Cannula 1.00 03/02/17 18:00 79 03/02/17 16:00 98.4 114 14 111/63 94 03/02/17 16:00 87 03/02/17 14:00 112 03/02/17 12:00 98.7 88 20 104/54 98 03/02/17 12:00 85 03/02/17 11:06 112 16 113/52 99 Nasal Cannula 2 03/02/17 10:16 104 16 90/54 98 Nasal Cannula 2 03/02/17 09:20 93 17 84/53 100 Nasal Cannula 2 03/02/17 09:14 93 17 84/53 100 Nasal Cannula 2 03/02/17 08:47 98 16 97/56 100 Nasal Cannula 2 03/02/17 08:23 84 16 88/52 100 Nasal Cannula 2 03/02/17 07:51 100 Room Air 03/02/17 07:51 143 I/O 03/02/17 03/02/17 03/02/17 03/03/17 03/03/17 03/03/17 07:00 15:00 23:00 07:00 15:00 23:00 Intake Total 2240 ml 809 ml 824 ml Output Total 2 ml 450 ml Balance 2238 ml 359 ml 824 ml Intake Oral 120 ml 240 ml 240 ml IV Total 2120 ml 569 ml 584 ml Output Urine Total 1 ml 450 ml Stool Total 1 ml # Voids 2 # Bowel Movements 0 0 Result Diagram: 03/03/178 03/03/17 0258 Imaging Last Impressions Head CT 03/03/17 0600 Signed Impressions: Service Date/Time: February 04:32 - CONCLUSION: Stable hypodensities in the white matter tracts bilaterally nonspecific finding. Very minimal increased density in the extra-axial right frontal supraorbital region could be a tiny amount of subarachnoid hemorrhage actually less impressive than the very subtle amount seen on the previous study Peter Morrison MD Chest X-Ray 03/02/17 0735 Signed Impressions: Service Date/Time: Thursday, March 02, 2017 07:48 - CONCLUSION: No acute disease. Alex Evans MD Procedures No procedures performed. Other Results Laboratory Tests Test 03/02/17 03/02/17 03/02/17 03/03/17 08:10 08:55 12:30 02:58 Neutrophils (%) (Auto) 61.7 % Lymphocytes (%) (Auto) 27.5 % Monocytes (%) (Auto) 7.8 % Eosinophils (%) (Auto) 2.3 % Basophils (%) (Auto) 0.7 % Neutrophils # (Auto) 4.7 TH/MM3 Lymphocytes # (Auto) 2.1 TH/MM3 Monocytes # (Auto) 0.6 TH/MM3 Eosinophils # (Auto) 0.2 TH/MM3 Basophils # (Auto) 0.1 TH/MM3 CBC Comment DIFF FINAL Differential Comment Prothrombin Time 11.6 SEC Prothromb Time International 1.0 RATIO Ratio Activated Partial 26.0 SEC Thromboplast Time Magnesium Level 1.7 MG/DL Total Bilirubin 0.3 MG/DL Aspartate Amino Transf 19 U/L (AST/SGOT) Alanine Aminotransferase 17 U/L (ALT/SGPT) Alkaline Phosphatase 40 U/L Total Creatine Kinase 88 U/L Total Protein 5.5 GM/DL Albumin 2.9 GM/DL Free Thyroxine 1.11 NG/DL Thyroid Stimulating Hormone 2.520 uIU/ML 3rd Gen Urine Color YELLOW Urine Turbidity CLEAR Urine pH 7.0 Urine Specific [place] 1.011 Urine Protein NEG mg/dL Urine Glucose (UA) NEG mg/dL Urine Ketones 10 mg/dL Urine Occult Blood TRACE Urine Nitrite NEG Urine Bilirubin NEG Urine Urobilinogen LESS THAN 2.0 MG/DL Urine Leukocyte Esterase NEG Urine RBC 2 /hpf Urine WBC 1 /hpf Urine Squamous Epithelial 2 /hpf Cells Urine Bacteria RARE /hpf Urine Mucus FEW /lpf Microscopic Urinalysis Comment CULT NOT INDICATED Urine Opiates Screen NEG Urine Barbiturates Screen NEG Urine Amphetamines Screen NEG Urine Benzodiazepines Screen NEG Urine Cocaine Screen NEG Urine Cannabinoids Screen NEG Nasal Screen MRSA (PCR) MRSA NOT DETECTED White Blood Count 7.7 TH/MM3 Red Blood Count 4.10 MIL/MM3 Hemoglobin 12.9 GM/DL Hematocrit 37.6 % Mean Corpuscular Volume 91.7 FL Mean Corpuscular Hemoglobin 31.4 PG Mean Corpuscular Hemoglobin 34.3 % Concent Red Cell Distribution Width 13.9 % Platelet Count 215 TH/MM3 Mean Platelet Volume 8.6 FL Sodium Level 144 MEQ/L Potassium Level 4.1 MEQ/L Chloride Level 113 MEQ/L Carbon Dioxide Level 25.1 MEQ/L Anion Gap 6 MEQ/L Blood Urea Nitrogen 15 MG/DL Creatinine 0.58 MG/DL Estimat Glomerular Filtration 104 ML/MIN Rate Random Glucose 123 MG/DL Calcium Level 7.6 MG/DL Troponin I 0.04 NG/ML Objective Remarks GENERAL: No acute distress. HEENT: There is small area of ecchymosis on her for head. Pupils equal, round, reactive, conjugate. Mucous membranes are moist. NECK: No JVD. Trachea midline. CHEST: Unlabored. Equal chest rise.. CARDIOVASCULAR: Sinus rhythm, no murmurs. ABDOMEN: Soft, nontender, nondistended. No guarding. MUSCULOSKELETAL: No Peripheral edema. Distal pulses 2+. NEUROLOGICAL: Alert and oriented x 3. no focal deficits. Medications and IVs Current Medications Medications (Trade) Dose Ordered Sig/Kylah Route Start Time Stop Time Status Last Admin Sodium Chloride 2 ml 2 ml UNSCH PRN IVF 03/02/17 07:45 (Cardizem Inj/NS Inj) 125 ml @ 0 mls/hr TITRATE IV 03/02/17 07:45 03/02/17 10:03 Sodium Chloride 2 ml 2 ml UNSCH PRN IVF 03/02/17 07:45 (NS + KCl 20 Meq Inj) 1,000 ml @ 125 mls/hr Q8H IV 03/02/17 09:15 03/02/17 12:44 Magnesium Oxide 800 mg 800 mg UNSCH PRN PO 03/02/17 09:30 Magnesium Sulfate 4 gm/Sodium Chloride 100 ml @ 50 mls/hr UNSCH PRN IV 03/02/17 09:30 Magnesium Sulfate 2 gm/Sodium Chloride 100 ml @ 50 mls/hr UNSCH PRN IV 03/02/17 09:30 Potassium Chloride 100 ml @ 50 mls/hr Q2H PRN IV 03/02/17 09:30 Potassium Chloride 100 ml @ 50 mls/hr Q2H PRN IV 03/02/17 09:30 03/02/17 12:45 Potassium Chloride 100 ml @ 50 mls/hr Q2H PRN IV 03/02/17 09:30 (KCl 40 Meq Premix Inj) 100 ml @ 25 mls/hr UNSCH PRN IV 03/02/17 09:30 (K-Phos) 2,000 mg Q4H PRN PO 03/02/17 09:30 Potassium Phosphate 2000 mg 2,000 mg UNSCH PRN PO/TUBE 03/02/17 09:30 (Sodium Phosphate Inj/NS 250 ml Inj) 250 ml @ 42 mls/hr UNSCH PRN IV 03/02/17 09:30 Dextrose 25 ml 25 ml UNSCH PRN IV PUSH 03/02/17 09:30 (NS 1000 ml Inj) 1,000 ml @ 84 mls/hr [id number] IV 03/02/17 09:29 03/02/17 11:03 (Tylenol) 650 mg Q6H PRN PO 03/02/17 09:30 (Morphine Inj) 2 mg Q2H PRN IV 03/02/17 09:30 03/02/17 17:30 (Pepcid) 20 mg Q12HR PO 03/02/17 21:00 03/02/17 21:15 (Zofran Inj) 4 mg Q6H PRN IV 03/02/17 09:30 03/02/17 11:05 Miscellaneous Information 1 Q361D XX 03/02/17 09:30 (Chlorhexidine 2% Cloth) 3 pack Taper DAILY@04 TOP 03/03/17 04:00 02/27/18 03:59 03/03/17 04:00 (Chlorhexidine 2% Cloth) 3 pack UNSCH PRN TOP 03/02/17 09:30 (Cardizem) 60 mg Q6HR PO 03/02/17 12:00 03/03/17 05:15 (Keppra) 500 mg Q12HR PO 03/02/17 21:00 03/09/17 20:59 03/02/17 21:15 A/P Assessment and Plan 1. Traumatic Subarachnoid hemorrhage -- frequent neuro checks, continue with headache as per Neurosurgery will continue with headache for the next three to four months. -- repeat head CT in 24h -- neurosurgery specialist following asked for new CT brain Improving hemorrhage. -- no anticoagulants for at least 7 days -- bedside swallow evaluation -- keppra 500mg po q12h x 7 days -- pepcid 2. New-onset atrial fibrillation with rapid ventricular response -- CHADS-VASc score 2. -- cannot anticoagulate for at least 7 days given traumatic SAH -- discontinued Diltiazem, continue Cardizem by mouth 60mg every six hours -- Echocardiogram EF 55-60% advance diet as tolerated after bedside swallow SCDs, no pharmacologic dvt prophylaxis given head bleed. Krishna Omalley MD March 03, 2017 07:42 Krishna Omalley MD March 03, 2017 07:42 advance diet as tolerated after bedside swallow SCDs, no pharmacologic dvt prophylaxis given head bleed. Krishna Omalley MD March 03, 2017 07:42
[2017-03-03] MEDS: FAMOTIDINE 20 MG TAB PO SCH ×2 (08:15→20:50)
[2017-03-03] MEDS: MORPHINE SULFATE 4 MG/ML INJ IV PRN (08:15)
[2017-03-03] MEDS: ONDANSETRON HCL 4 MG/2 ML VIAL IV PRN (08:15)
[2017-03-03] MEDS: levETIRAcetam 500 MG TAB PO SCH ×2 (08:15→20:50)
[2017-03-03] MEDS: NS + KCL 20 MEQ INJ 1,000 ML IV SCH ×3 (08:16→18:12)
[2017-03-03] MEDS: ACETAMINOPHEN 325 MG TAB PO PRN ×3 (08:16→20:52)
--- NOTE | 2017-03-03 08:24 | EC ---
Study Study Date:03/02/2017 STUDY CONCLUSIONS SUMMARY - Left ventricle: The cavity size was normal. Wall thickness was normal. Systolic function was normal. The estimated ejection fraction was in the range of 55% to 60%. Wall motion was normal; there were no regional wall motion abnormalities. - Ventricular septum: The outflow septum had a sigmoid appearance. - Tricuspid valve: Mild regurgitation. If LV function is below 40, please consider prescribing an ACEI or ARB or document rationale for non-use. PROCEDURE DATA STUDY STATUS: Elective. Procedure: Transthoracic echocardiography. Image quality was good. Scanning was performed from the parasternal, apical, and subcostal acoustic windows. Study completion: The patient tolerated the procedure well. Transthoracic echocardiography. M-mode, complete 2D, complete spectral Doppler, and color Doppler. Patient status: Inpatient. CARDIAC ANATOMY LEFT VENTRICLE: The cavity size was normal. Wall thickness was normal. Systolic function was normal. The estimated ejection fraction was in the range of 55% to 60%. Wall motion was normal; there were no regional wall motion abnormalities. AORTIC VALVE: [place]. Doppler: There was no stenosis. No significant regurgitation. MITRAL VALVE: The valve appears to be grossly normal. Doppler: There was no evidence for stenosis. Trace regurgitation. LEFT ATRIUM: The atrium was normal in size. RIGHT VENTRICLE: The cavity size was normal. VENTRICULAR SEPTUM: The outflow septum had a sigmoid appearance. PULMONIC VALVE: Not well visualized. Doppler: There was no evidence for stenosis. Trace regurgitation. TRICUSPID VALVE: The valve appears to be grossly normal. Doppler: There was no evidence for stenosis. Mild regurgitation. PERICARDIUM: There was no pericardial effusion. SYSTEMIC VEINS: Inferior vena cava: Well visualized. The vessel was mildly dilated. BASIC MEASUREMENTS ADULT Normal Left ventricle LV internal dimension, ED, chordal level, *40.9 mm 43-52 PLAX LV internal dimension, ES, chordal level, 30.9 mm 23-38 PLAX Fractional shortening, chordal level, PLAX *24 % >29 LV posterior wall thickness, ED 6.36 mm IVS/LVPW ratio, ED 1.22 <1.3 Ventricular septum Septal thickness, ED 7.78 mm Aortic valve Leaflet separation 17 mm 15-26 Left atrium Anterior-posterior dimension 34 mm Right ventricle RV internal dimension, ED, PLAX 19 mm 19-38 BASIC MEASUREMENTS ADULT Normal Aortic valve Leaflet separation 17 mm 15-26 Aorta Root diameter, ED 30 mm 20-37 DOPPLER MEASUREMENTS ADULT Normal Main pulmonary artery Pressure, S 30 mm Hg =30 Mitral valve Peak E-wave velocity 62.2 cm/s Tricuspid valve Regurgitant peak velocity 194 cm/s Peak RV-RA gradient, S 15 mm Hg Maximal regurgitant velocity 194 cm/s Systemic veins Estimated CVP 10 mm Hg Right ventricle RV pressure, S *30 mm Hg <30 LEGEND: Mean values are shown as u=mean value. Asterisk (*) garibay values outside specified normal range. Prepared and signed by Tu Tavarez [id number]
[2017-03-03] MEDS: SODIUM CHLOR 0.9% 1000 ML INJ 1,000 ML IV SCH ×2 (09:19→21:14)
--- NOTE | 2017-03-03 17:34 | HHI.NSPN ---
(Adela Ceballos) Note Status Status: Progress Note (Adela Ceballos) Interval History Interval History 03/03: seen during am rounds, c/o mild headaches and dizziness. no seizures. f/ u CT head completed (Adela Ceballos) Labs, Micro, & Vital Signs Results Date Time Temp Pulse Resp B/P Pulse Ox O2 Delivery O2 Flow Rate FiO2 03/03/17 16:00 69 03/03/17 16:00 99.3 69 17 131/60 100 03/03/17 15:45 20 03/03/17 14:00 60 03/03/17 12:00 67 03/03/17 12:00 98.6 67 19 110/59 96 03/03/17 10:00 75 03/03/17 08:20 18 03/03/17 08:00 72 03/03/17 08:00 98.7 66 18 98/56 99 03/03/17 07:00 96 Room Air 03/03/17 06:00 72 03/03/17 04:00 69 03/03/17 04:00 98.1 69 18 115/68 98 03/03/17 02:00 70 03/03/17 00:00 80 03/03/17 00:00 98.6 80 22 118/59 98 03/02/17 22:00 75 03/02/17 20:00 77 03/02/17 19:00 98.2 77 18 115/56 97 03/02/17 19:00 97 Nasal Cannula 1.00 03/02/17 18:00 79 03/03/17 07:00 Intake Total 3873 ml Output Total 452 ml Balance 3421 ml Constitutional Vital Signs Date Time Temp Pulse Resp B/P Pulse Ox O2 Delivery O2 Flow Rate FiO2 03/03/17 16:00 69 03/03/17 16:00 99.3 69 17 131/60 100 03/03/17 15:45 20 03/03/17 14:00 60 03/03/17 12:00 67 03/03/17 12:00 98.6 67 19 110/59 96 03/03/17 10:00 75 03/03/17 08:20 18 03/03/17 08:00 72 03/03/17 08:00 98.7 66 18 98/56 99 03/03/17 07:00 96 Room Air 03/03/17 06:00 72 03/03/17 04:00 69 03/03/17 04:00 98.1 69 18 115/68 98 03/03/17 02:00 70 03/03/17 00:00 80 03/03/17 00:00 98.6 80 22 118/59 98 03/02/17 22:00 75 03/02/17 20:00 77 03/02/17 19:00 98.2 77 18 115/56 97 03/02/17 19:00 97 Nasal Cannula 1.00 03/02/17 18:00 79 03/03/17 07:00 Intake Total 3873 ml Output Total 452 ml Balance 3421 ml (Adela Ceballos) Review of Systems/Exam Exam Ms. Cowan is alert, awake and oriented to time, place and person. Speech is fluent. Follows commands well. Right eye ecchymoses. Cranial nerve examination: pupils to be equal, round, and reactive to light. Extra-ocular movements are intact. Facial motor are normal and symmetrical. Neck: soft, supple Muscle strength is 5/5 in all muscle groups of both upper and lower extremities. Sensory examination is intact to light touch in both the upper and lower extremities, symmetrically. (Adela Ceballos) Medications Current Medications Current Medications Medications (Trade) Dose Ordered Sig/Kylah Route PRN Reason Start Time Stop Time Status Last Admin Dose Admin Sodium Chloride (NS Flush) 2 ml UNSCH PRN IVF FLUSH AFTER USING IV ACCESS 03/02/17 07:45 Sodium Chloride 2 ml 2 ml UNSCH PRN IVF FLUSH AFTER USING IV ACCESS 03/02/17 07:45 Potassium Chloride/Sodium Chloride (NS + KCl 20 Meq Inj) 1,000 ml @ 125 mls/hr Q8H IV 03/02/17 09:15 03/03/17 09:15 Magnesium Oxide 800 mg 800 mg UNSCH PRN PO For Magnesium 1.2 - 1.6 mg/dL 03/02/17 09:30 Magnesium Sulfate 4 gm/Sodium Chloride 100 ml @ 50 mls/hr UNSCH PRN IV For Magnesium 0.9 - 1.1 mg/dL 03/02/17 09:30 Magnesium Sulfate 2 gm/Sodium Chloride 100 ml @ 50 mls/hr UNSCH PRN IV For Magnesium 1.2 - 1.6 mg/dL 03/02/17 09:30 Potassium Chloride 100 ml @ 50 mls/hr Q2H PRN IV For Potassium 2.8 - 3.2 mEq/L 03/02/17 09:30 Potassium Chloride 100 ml @ 50 mls/hr Q2H PRN IV For Potassium 3.3 - 3.5 mEq/L 03/02/17 09:30 03/02/17 12:45 Potassium Chloride 100 ml @ 50 mls/hr Q2H PRN IV For Potassium 2.8 - 3.2 mEq/L 03/02/17 09:30 Potassium Chloride (KCl 40 Meq Premix Inj) 100 ml @ 25 mls/hr UNSCH PRN IV For Potassium 3.3 - 3.5 mEq/L 03/02/17 09:30 Potassium Phosphate (K-Phos) 2,000 mg Q4H PRN PO For Phosphorus < 2.5 mg/dL 03/02/17 09:30 Potassium Phosphate 2000 mg 2,000 mg UNSCH PRN PO/TUBE SEE LABEL COMMENTS 03/02/17 09:30 Sodium Phosphate/ Sodium Chloride (Sodium Phosphate Inj/NS 250 ml Inj) 250 ml @ 42 mls/hr UNSCH PRN IV For Phosphorus < 2.5 mg/dL 03/02/17 09:30 Dextrose 25 ml 25 ml UNSCH PRN IV PUSH HYPOGLYCEMIA-SEE COMMENTS 03/02/17 09:30 Sodium Chloride (NS 1000 ml Inj) 1,000 ml @ 84 mls/hr [id number] IV 03/02/17 09:29 03/02/17 11:03 Acetaminophen (Tylenol) 650 mg Q6H PRN PO PAIN 1-10 AND/OR FEVER >101F 03/02/17 09:30 03/03/17 14:45 Morphine Sulfate (Morphine Inj) 2 mg Q2H PRN IV PAIN SCALE 6 TO 10 03/02/17 09:30 03/03/17 08:15 Famotidine (Pepcid) 20 mg Q12HR PO 03/02/17 21:00 03/03/17 08:15 Ondansetron HCl (Zofran Inj) 4 mg Q6H PRN IV NAUSEA OR VOMITING 03/02/17 09:30 03/03/17 08:15 Miscellaneous Information 1 Q361D XX 03/02/17 09:30 Chlorhexidine Gluconate (Chlorhexidine 2% Cloth) 3 pack Taper DAILY@04 TOP 03/03/17 04:00 02/27/18 03:59 03/03/17 04:00 Chlorhexidine Gluconate (Chlorhexidine 2% Cloth) 3 pack UNSCH PRN TOP HYGIENIC CARE 03/02/17 09:30 Diltiazem HCl (Cardizem) 60 mg Q6HR PO 03/02/17 12:00 03/03/17 12:21 Levetriacetam (Keppra) 500 mg Q12HR PO 03/02/17 21:00 03/09/17 20:59 03/03/17 08:15 (Adela Ceballos) Medical Decision Making MDM Remarks 66 y/o female s/p fall, mild TBI, traumatic SAH, nonfocal exam (Adela Ceballos) Plan Plan Remarks f/u CT Head reviewed, cont nonop mgt serial neuro checks nonchemical dvt prophylaxis with SCDs and TEDs (Adela Ceballos) Attending Statement The exam, history, and the medical decision-making described in the above note were completed with the assistance of the mid-level provider. I reviewed and agree with the findings presented. I attest that I had a [id number] encounter with the patient on the same day, and personally performed and documented my assessment and findings in the medical record. (Trever Herrera MD) Adela Ceballos March 03, 2017 17:33 Trever Herrera MD March 07, 2017 12:48
[2017-03-04] VITALS (11 sets, daily range): BP systolic 103–149; BP diastolic 55–67; PULSE 58–83; RESP 12–20; TEMP 97–99.2; O2SAT 94–97
[2017-03-04] MEDS: NS + KCL 20 MEQ INJ 1,000 ML IV SCH ×2 (01:15→09:15)
[2017-03-04] MEDS: SODIUM CHLOR 0.9% 1000 ML INJ 1,000 ML IV SCH ×2 (02:43→09:09)
[2017-03-04] MEDS: INSULIN NovoLIN REGULAR SUPPLEMENTAL SCALE SQ SCH ×5 (03:00→20:15)
[2017-03-04] MEDS: CHLORHEXIDINE GLUCONATE 2 % 1 PACK (2 CLOTHS) TOP SCH (04:00)
[2017-03-04 04:14] LABS: HEMATOCRIT 38.8 % (35.0-46.0); MEAN CELL VOLUME 93.1 FL (80.0-100.0); MEAN CORPUSCULAR HEMOGLOBIN 30.7 PG (27.0-34.0); PLATELET COUNT 212 TH/MM3 (150-450); RED BLOOD COUNT 4.17 MIL/MM3 (4.00-5.30); REVIEW FLAG FINAL; WHITE BLOOD COUNT 7.7 TH/MM3 (4.0-11.0)
[2017-03-04] MEDS: ACETAMINOPHEN 325 MG TAB PO PRN ×2 (04:35→09:10)
[2017-03-04 04:41] LABS: BICARBONATE 25.4 MEQ/L (21.0-32.0); POTASSIUM 3.7 MEQ/L (3.5-5.1)
[2017-03-04] MEDS: DILTIAZEM HCL 60 MG TAB PO SCH ×4 (05:52→17:43)
[2017-03-04] MEDS: levETIRAcetam 500 MG TAB PO SCH ×2 (09:09→20:15)
[2017-03-04] MEDS: FAMOTIDINE 20 MG TAB PO SCH ×2 (09:09→20:15)
--- NOTE | 2017-03-04 10:25 | HHI.NSPN ---
(Adela Ceballos) Note Status Status: Progress Note (Adela Ceballos) Interval History Interval History 03/03: seen during am rounds, c/o mild headaches and dizziness. no seizures. f/ u CT head completed 03/04: persistent but stable headaches, no change mental status overnight, moves all four extremities. does not want narcotics for pain control. (Adela Ceballos) Labs, Micro, & Vital Signs Results Date Time Temp Pulse Resp B/P Pulse Ox O2 Delivery O2 Flow Rate FiO2 03/04/17 08:00 64 03/04/17 07:00 95 Room Air 03/04/17 05:35 15 03/04/17 04:00 63 03/04/17 04:00 99.2 70 12 103/55 96 03/04/17 02:00 62 03/04/17 00:00 98.8 60 14 108/57 95 03/04/17 00:00 60 03/03/17 22:00 66 03/03/17 20:00 99.2 66 15 123/58 95 03/03/17 20:00 65 03/03/17 19:00 95 Room Air 03/03/17 18:00 71 03/03/17 16:00 69 03/03/17 16:00 99.3 69 17 131/60 100 03/03/17 14:00 60 03/03/17 12:00 67 03/03/17 12:00 98.6 67 19 110/59 96 03/04/17 06:59 Intake Total 2354 ml Output Total 300 ml Balance 2054 ml Constitutional Vital Signs Date Time Temp Pulse Resp B/P Pulse Ox O2 Delivery O2 Flow Rate FiO2 03/04/17 08:00 64 03/04/17 07:00 95 Room Air 03/04/17 05:35 15 03/04/17 04:00 63 03/04/17 04:00 99.2 70 12 103/55 96 03/04/17 02:00 62 03/04/17 00:00 98.8 60 14 108/57 95 03/04/17 00:00 60 03/03/17 22:00 66 03/03/17 20:00 99.2 66 15 123/58 95 03/03/17 20:00 65 03/03/17 19:00 95 Room Air 03/03/17 18:00 71 03/03/17 16:00 69 03/03/17 16:00 99.3 69 17 131/60 100 03/03/17 14:00 60 03/03/17 12:00 67 03/03/17 12:00 98.6 67 19 110/59 96 03/04/17 06:59 Intake Total 2354 ml Output Total 300 ml Balance 2054 ml (Adela Ceballos) Review of Systems/Exam Exam Ms. Cowan is alert and oriented to time, place and person. Speech is fluent. Follows commands well. Right eye ecchymoses. Cranial nerve examination: pupils equal, round. Extra-ocular movements are intact. Facial motor are normal and symmetrical. Neck: soft, supple Muscle strength is 5/5 in all muscle groups of both upper and lower extremities. Sensory examination is intact to light touch in both the upper and lower extremities, symmetrically. Cerebellar: intact finger to nose (Adela Ceballos) Medications Current Medications Current Medications Medications (Trade) Dose Ordered Sig/Kylah Route PRN Reason Start Time Stop Time Status Last Admin Dose Admin Sodium Chloride (NS Flush) 2 ml UNSCH PRN IVF FLUSH AFTER USING IV ACCESS 03/02/17 07:45 Sodium Chloride 2 ml 2 ml UNSCH PRN IVF FLUSH AFTER USING IV ACCESS 03/02/17 07:45 Potassium Chloride/Sodium Chloride (NS + KCl 20 Meq Inj) 1,000 ml @ 125 mls/hr Q8H IV 03/02/17 09:15 03/04/17 01:15 Magnesium Oxide 800 mg 800 mg UNSCH PRN PO For Magnesium 1.2 - 1.6 mg/dL 03/02/17 09:30 Magnesium Sulfate 4 gm/Sodium Chloride 100 ml @ 50 mls/hr UNSCH PRN IV For Magnesium 0.9 - 1.1 mg/dL 03/02/17 09:30 Magnesium Sulfate 2 gm/Sodium Chloride 100 ml @ 50 mls/hr UNSCH PRN IV For Magnesium 1.2 - 1.6 mg/dL 03/02/17 09:30 Potassium Chloride 100 ml @ 50 mls/hr Q2H PRN IV For Potassium 2.8 - 3.2 mEq/L 03/02/17 09:30 Potassium Chloride 100 ml @ 50 mls/hr Q2H PRN IV For Potassium 3.3 - 3.5 mEq/L 03/02/17 09:30 03/02/17 12:45 Potassium Chloride 100 ml @ 50 mls/hr Q2H PRN IV For Potassium 2.8 - 3.2 mEq/L 03/02/17 09:30 Potassium Chloride (KCl 40 Meq Premix Inj) 100 ml @ 25 mls/hr UNSCH PRN IV For Potassium 3.3 - 3.5 mEq/L 03/02/17 09:30 Potassium Phosphate (K-Phos) 2,000 mg Q4H PRN PO For Phosphorus < 2.5 mg/dL 03/02/17 09:30 Potassium Phosphate 2000 mg 2,000 mg UNSCH PRN PO/TUBE SEE LABEL COMMENTS 03/02/17 09:30 Sodium Phosphate/ Sodium Chloride (Sodium Phosphate Inj/NS 250 ml Inj) 250 ml @ 42 mls/hr UNSCH PRN IV For Phosphorus < 2.5 mg/dL 03/02/17 09:30 Dextrose 25 ml 25 ml UNSCH PRN IV PUSH HYPOGLYCEMIA-SEE COMMENTS 03/02/17 09:30 Sodium Chloride (NS 1000 ml Inj) 1,000 ml @ 84 mls/hr [id number] IV 03/02/17 09:29 03/02/17 11:03 Acetaminophen (Tylenol) 650 mg Q6H PRN PO PAIN 1-10 AND/OR FEVER >101F 03/02/17 09:30 03/04/17 09:10 Morphine Sulfate (Morphine Inj) 2 mg Q2H PRN IV PAIN SCALE 6 TO 10 03/02/17 09:30 03/03/17 08:15 Famotidine (Pepcid) 20 mg Q12HR PO 03/02/17 21:00 03/04/17 09:09 Ondansetron HCl (Zofran Inj) 4 mg Q6H PRN IV NAUSEA OR VOMITING 03/02/17 09:30 03/03/17 08:15 Miscellaneous Information 1 Q361D XX 03/02/17 09:30 Chlorhexidine Gluconate (Chlorhexidine 2% Cloth) 3 pack Taper DAILY@04 TOP 03/03/17 04:00 02/27/18 03:59 03/04/17 04:00 Chlorhexidine Gluconate (Chlorhexidine 2% Cloth) 3 pack UNSCH PRN TOP HYGIENIC CARE 03/02/17 09:30 Diltiazem HCl (Cardizem) 60 mg Q6HR PO 03/02/17 12:00 03/03/17 18:12 Levetriacetam (Keppra) 500 mg Q12HR PO 03/02/17 21:00 03/09/17 20:59 03/04/17 09:09 (Adela Ceballos) Medical Decision Making MDM Remarks 66 y/o female s/p fall, mild TBI, traumatic SAH, nonfocal exam headaches, post-concussive syndrome (Adela Ceballos) Plan Plan Remarks cont serial neuro checks start trial of Neurontin for headaches cont therapy, encourage mobilization (Adela Ceballos) Attending Statement The exam, history, and the medical decision-making described in the above note were completed with the assistance of the mid-level provider. I reviewed and agree with the findings presented. I attest that I had a [id number] encounter with the patient on the same day, and personally performed and documented my assessment and findings in the medical record. (Trever Herrera MD) Adela Ceballos March 04, 2017 10:25 Trever Herrera MD March 07, 2017 12:50
[2017-03-04] MEDS: GABAPENTIN 300 MG CAP PO SCH ×2 (11:13→17:44)
[2017-03-04] MEDS: predniSONE 5 MG TAB PO SCH (12:00)
[2017-03-04] MEDS ORDERED: PILL SPLITTER OTHER PRN (12:00)
[2017-03-04] MEDS: ACETAMINOPHEN/HYDROcodone 325 MG/5 MG TAB PO PRN ×2 (14:20→20:15)
--- NOTE | 2017-03-04 15:59 | MB ---
cc: JESÚS LOVE M.D. DATE OF CONSULTATION 03/04/17 REASON FOR CONSULTATION Syncope, atrial fibrillation. HISTORY OF PRESENT ILLNESS The patient is a 66-year-old white female with basically no major past medical history who was brought to the hospital after a syncopal episode. The patient had just gotten out of bed at about 6:00 a.m. to get ready for work when while walking to the kitchen she lost consciousness. She recalls to some degree having some preceding lightheadedness. The patient was unconscious for less than 10 seconds. When she regained consciousness there was no disorientation but she did have an extreme urge to have a bowel movement and to urinate. She was brought to the bathroom by her and she did have a bowel movement and urinated. When the helped her to the couch she once again lost consciousness briefly. Throughout this time period she did feel somewhat nauseated and diaphoretic. There was no definite seizure activity. The patient denies any prior episodes of syncope. She also denies chest pain, shortness of breath, palpitations, pedal edema, paroxysmal nocturnal dyspnea, recent fevers, headache. PAST MEDICAL HISTORY None. CARDIAC MEDICATIONS AT HOME None. ALLERGIES NO KNOWN DRUG ALLERGIES. PAST SURGICAL HISTORY Bunionectomies, breast biopsy. FAMILY HISTORY There is no significant family history of early myocardial infarction or sudden cardiac . SOCIAL HISTORY The patient denies tobacco abuse. She drinks two glasses of wine most nights. REVIEW OF SYSTEMS The review of systems as in the history of present illness, otherwise, negative or noncontributory. She also denies speech disturbances, unilateral weakness or numbness, abdominal pain, melena, dyspepsia, bright red blood per rectum. PHYSICAL EXAMINATION VITAL SIGNS: On physical examination her blood pressure 131/63 with a pulse of 67, respirations 20. GENERAL: In general she is a well-developed, well-nourished white female in no acute distress. HEENT:Jugular venous pressure is normal. Carotid pulses are 2+ bilaterally and without bruits. CHEST: Examination of the chest reveals clear lung sosa. CARDIAC: On examination she has a regular rhythm and rate without S3-S4 or murmur. ABDOMEN: On abdominal examination she has a soft, nontender abdomen. Bowel sounds are present. There is no definite hepatosplenomegaly. EXTREMITIES: Examination of the extremities reveals no clubbing, cyanosis or edema. CARDIOLOGY STUDIES EKG shows atrial fibrillation with a rapid ventricular response, otherwise, normal EKG. LABORATORY DATA Laboratory data includes normal CBC. BUN 9, creatinine 0.50, potassium 3.7. Negative cardiac enzymes. Negative toxicology screen. IMAGING STUDIES Chest x-ray shows no acute disease. IMPRESSION Paroxysmal atrial fibrillation, syncope, resulting in a fall causing a small right frontal extra-axial subarachnoid hemorrhage in this 66-year-old white female with previously no major past medical history. At this time she is back in sinus rhythm. The etiology of the atrial fibrillation is not entirely clear. She has no prior history of cardiac disease or hypertension. Her thromboembolic risk is low. The etiology of the syncopal episode may have been vasovagal mediated. Overall, I doubt the atrial fibrillation itself caused the syncopal episode. Echocardiogram reportedly shows normal left ventricular function. There is some mention of "sigmoid appearance" to the ventricular septum, although, there is no left ventricular outflow track gradient. Her exam is also not consistent with hypertrophic obstructive cardiomyopathy. RECOMMENDATIONS 1. Agree with the oral Cardizem. 2. In the future, when okay from a neurosurgical standpoint, would recommend daily baby aspirin. 3. Will review her echocardiogram images. MD DOMINICK Tracy/MAYRA /3:24 PM /3:37 PM ANASTASIIA
--- NOTE | 2017-03-04 16:05 | HHI.PR ---
Subjective Remarks mgmt specialist notes: This is a 66-year-old female with a relatively unremarkable past medical history who presents after syncopal fall. She reports that she was up early this morning and felt dizzy, and then passed out and hit her head. Her reports hearing a loud noise and coming in finding her way found on the floor. She was alert and oriented after the event. She was brought in by EMS. In emergency department she was found to be in new onset atrial fibrillation with rapid ventricular response. She was started on a diltiazem drip. She was taken for head CT and found to have a small traumatic subarachnoid hemorrhage. Critical-care medicine is consulted to evaluate and manage her new onset atrial fibrillation and her traumatic subarachnoid hemorrhage. I evaluated the patient and she denies chest pain, shortness of breath, prior episodes of palpitations or syncope. She does endorse headache and nausea. Denies vomiting or constipation diarrhea 03/04: Stable in her bedroom, no nausea, vomit or diarrhea, continue to complaint of headache, continue in sinus rhythm, her CHADS-VASc score is 2, will follow recommendations by labor delivery specialist consulted, as per neurosurgery she will continue to have headache for the next three to four months. discussed with her Mr. Pelayo and her Sister Mrs. Cary, the patient is not eating properly will add some Ensure. Objective Vital Signs Date Time Temp Pulse Resp B/P Pulse Ox O2 Delivery O2 Flow Rate FiO2 03/04/17 14:00 67 03/04/17 12:00 98.0 61 20 131/63 95 03/04/17 12:00 61 03/04/17 10:10 20 03/04/17 10:00 80 03/04/17 08:00 97.8 66 16 134/62 94 03/04/17 08:00 64 03/04/17 07:00 95 Room Air 03/04/17 04:00 63 03/04/17 04:00 99.2 70 12 103/55 96 03/04/17 02:00 62 03/04/17 00:00 98.8 60 14 108/57 95 03/04/17 00:00 60 03/03/17 22:00 66 03/03/17 20:00 99.2 66 15 123/58 95 03/03/17 20:00 65 03/03/17 19:00 95 Room Air 03/03/17 18:00 71 03/03/17 16:00 69 03/03/17 16:00 99.3 69 17 131/60 100 I/O 03/03/17 03/03/17 03/03/17 03/04/17 03/04/17 03/04/17 07:00 15:00 23:00 07:00 15:00 23:00 Intake Total 824 ml 1264 ml 1090 ml 1021 ml Output Total 300 ml 0 ml 600 ml Balance 824 ml 964 ml 1090 ml 421 ml Intake Oral 240 ml 300 ml 240 ml 360 ml IV Total 584 ml 964 ml 850 ml 661 ml Output Urine Total 300 ml 600 ml Stool Total 0 ml # Voids 2 2 # Bowel Movements 0 0 Result Diagram: 03/04/173 03/04/17322 Imaging Last Impressions Head CT 03/03/17 0600 Signed Impressions: Service Date/Time: February 04:32 - CONCLUSION: Stable hypodensities in the white matter tracts bilaterally nonspecific finding. Very minimal increased density in the extra-axial right frontal supraorbital region could be a tiny amount of subarachnoid hemorrhage actually less impressive than the very subtle amount seen on the previous study Peter Morrison MD Chest X-Ray 03/02/17 0735 Signed Impressions: Service Date/Time: Thursday, March 02, 2017 07:48 - CONCLUSION: No acute disease. Alex Evans MD Procedures No procedures performed. Other Results Laboratory Tests Test 03/02/17 03/02/17 03/02/17 03/04/17 08:10 08:55 12:30 03:23 Neutrophils (%) (Auto) 61.7 % Lymphocytes (%) (Auto) 27.5 % Monocytes (%) (Auto) 7.8 % Eosinophils (%) (Auto) 2.3 % Basophils (%) (Auto) 0.7 % Neutrophils # (Auto) 4.7 TH/MM3 Lymphocytes # (Auto) 2.1 TH/MM3 Monocytes # (Auto) 0.6 TH/MM3 Eosinophils # (Auto) 0.2 TH/MM3 Basophils # (Auto) 0.1 TH/MM3 CBC Comment DIFF FINAL Differential Comment Prothrombin Time 11.6 SEC Prothromb Time International 1.0 RATIO Ratio Activated Partial 26.0 SEC Thromboplast Time Magnesium Level 1.7 MG/DL Total Bilirubin 0.3 MG/DL Aspartate Amino Transf 19 U/L (AST/SGOT) Alanine Aminotransferase 17 U/L (ALT/SGPT) Alkaline Phosphatase 40 U/L Total Creatine Kinase 88 U/L Total Protein 5.5 GM/DL Albumin 2.9 GM/DL Free Thyroxine 1.11 NG/DL Thyroid Stimulating Hormone 2.520 uIU/ML 3rd Gen Urine Color YELLOW Urine Turbidity CLEAR Urine pH 7.0 Urine Specific [place] 1.011 Urine Protein NEG mg/dL Urine Glucose (UA) NEG mg/dL Urine Ketones 10 mg/dL Urine Occult Blood TRACE Urine Nitrite NEG Urine Bilirubin NEG Urine Urobilinogen LESS THAN 2.0 MG/DL Urine Leukocyte Esterase NEG Urine RBC 2 /hpf Urine WBC 1 /hpf Urine Squamous Epithelial 2 /hpf Cells Urine Bacteria RARE /hpf Urine Mucus FEW /lpf Microscopic Urinalysis Comment CULT NOT INDICATED Urine Opiates Screen NEG Urine Barbiturates Screen NEG Urine Amphetamines Screen NEG Urine Benzodiazepines Screen NEG Urine Cocaine Screen NEG Urine Cannabinoids Screen NEG Nasal Screen MRSA (PCR) MRSA NOT DETECTED White Blood Count 7.7 TH/MM3 Red Blood Count 4.17 MIL/MM3 Hemoglobin 12.8 GM/DL Hematocrit 38.8 % Mean Corpuscular Volume 93.1 FL Mean Corpuscular Hemoglobin 30.7 PG Mean Corpuscular Hemoglobin 33.0 % Concent Red Cell Distribution Width 14.0 % Platelet Count 212 TH/MM3 Mean Platelet Volume 8.8 FL Sodium Level 146 MEQ/L Potassium Level 3.7 MEQ/L Chloride Level 111 MEQ/L Carbon Dioxide Level 25.4 MEQ/L Anion Gap 10 MEQ/L Blood Urea Nitrogen 9 MG/DL Creatinine 0.50 MG/DL Estimat Glomerular Filtration 123 ML/MIN Rate Random Glucose 98 MG/DL Calcium Level 7.6 MG/DL Test 03/04/17 11:33 Troponin I 0.03 NG/ML Objective Remarks GENERAL: No acute distress. HEENT: Right palpebral area is ecchymotic and with edema, eye is closed. but pupil is reactive to light. NECK: No JVD. Trachea midline. CHEST: Unlabored. Equal chest rise.. CARDIOVASCULAR: Sinus rhythm, no murmurs. ABDOMEN: Soft, nontender, nondistended. No guarding. MUSCULOSKELETAL: No Peripheral edema. Distal pulses 2+. NEUROLOGICAL: Alert and oriented x 3. no focal deficits. Medications and IVs Current Medications Medications (Trade) Dose Ordered Sig/Kylah Route Start Time Stop Time Status Last Admin (NS Flush) 2 ml UNSCH PRN IVF 03/02/17 07:45 (NS Flush) 2 ml UNSCH PRN IVF 03/02/17 07:45 Magnesium Oxide 800 mg 800 mg UNSCH PRN PO 03/02/17 09:30 Magnesium Sulfate 4 gm/Sodium Chloride 100 ml @ 50 mls/hr UNSCH PRN IV 03/02/17 09:30 (Magnesium Sulfate Inj/NS Inj) 100 ml @ 50 mls/hr UNSCH PRN IV 03/02/17 09:30 (K-Phos) 2,000 mg Q4H PRN PO 03/02/17 09:30 Potassium Phosphate 2000 mg 2,000 mg UNSCH PRN PO/TUBE 03/02/17 09:30 (Sodium Phosphate Inj/NS 250 ml Inj) 250 ml @ 42 mls/hr UNSCH PRN IV 03/02/17 09:30 Dextrose 25 ml 25 ml UNSCH PRN IV PUSH 03/02/17 09:30 (NS 1000 ml Inj) 1,000 ml @ 84 mls/hr [id number] IV 03/02/17 09:29 03/02/17 11:03 (Tylenol) 650 mg Q6H PRN PO 03/02/17 09:30 03/04/17 09:10 (Morphine Inj) 2 mg Q2H PRN IV 03/02/17 09:30 03/03/17 08:15 (Pepcid) 20 mg Q12HR PO 03/02/17 21:00 03/04/17 09:09 (Zofran Inj) 4 mg Q6H PRN IV 03/02/17 09:30 03/03/17 08:15 Miscellaneous Information 1 Q361D XX 03/02/17 09:30 (Chlorhexidine 2% Cloth) 3 pack Taper DAILY@04 TOP 03/03/17 04:00 02/27/18 03:59 03/04/17 04:00 (Chlorhexidine 2% Cloth) 3 pack UNSCH PRN TOP 03/02/17 09:30 (Cardizem) 60 mg Q6HR PO 03/02/17 12:00 03/04/17 11:13 (Keppra) 500 mg Q12HR PO 03/02/17 21:00 03/09/17 20:59 03/04/17 09:09 (Neurontin) 300 mg TID PO 03/04/17 13:00 03/04/17 11:13 (Deltasone) 7.5 mg DAILY PO 03/04/17 12:00 03/04/17 12:00 (Pill Splitter) 1 ea UNSCH PRN OTHER 03/04/17 12:00 ([place] 5-325 Mg) 1 tab Q4H PRN PO 03/04/17 15:00 03/04/17 14:20 ([place] 5-325 Mg) 2 tab Q4H PRN PO 03/04/17 15:00 A/P Assessment and Plan 1. Traumatic Subarachnoid hemorrhage -- frequent neuro checks, continue with headache as per Neurosurgery will continue with headache for the next three to four months. -- repeat head CT in 24h -- neurosurgery specialist following asked for new CT brain Improving hemorrhage. -- no anticoagulants for at least 7 days -- bedside swallow evaluation -- keppra 500mg po q12h x 7 days -- pepcid 2. New-onset atrial fibrillation with rapid ventricular response -- CHADS-VASc score 2. -- cannot anticoagulate for at least 7 days given traumatic SAH -- discontinued Diltiazem, continue Cardizem by mouth 60mg every six hours -- Echocardiogram EF 55-60% --Consult labor delivery specialist advance diet as tolerated after bedside swallow SCDs, no pharmacologic dvt prophylaxis given head bleed. Discussed with Patient and Nurse Miss Russo and with her Mr. Pelayo and her Sister Mrs. Cary all questions answered to the best of my abilities. Discussed with Neurosurgery specialist Doctor Trever Herrera. Discharge Planning Once cleared by Neurosurgery and labor delivery specialist. Krishna Omalley MD March 04, 2017 16:05
[2017-03-05] VITALS (8 sets, daily range): BP systolic 121–151; BP diastolic 59–71; PULSE 55–72; RESP 18–20; TEMP 96.4–98.8; O2SAT 94–96
[2017-03-05] MEDS: ACETAMINOPHEN/HYDROcodone 325 MG/5 MG TAB PO PRN ×5 (02:43→22:36)
[2017-03-05] MEDS: INSULIN NovoLIN REGULAR SUPPLEMENTAL SCALE SQ SCH ×5 (03:43→21:00)
[2017-03-05] MEDS: CHLORHEXIDINE GLUCONATE 2 % 1 PACK (2 CLOTHS) TOP SCH (04:16)
[2017-03-05] MEDS: DILTIAZEM HCL 60 MG TAB PO SCH ×4 (06:07→17:42)
[2017-03-05 08:05] LABS: HEMATOCRIT 38.3 % (35.0-46.0); MEAN CORPUSCULAR HEMOGLOBIN 30.8 PG (27.0-34.0); MEAN CORPUSCULAR HGB CONC 33.5 % (32.0-36.0); PLATELET COUNT 219 TH/MM3 (150-450); RED BLOOD COUNT 4.16 MIL/MM3 (4.00-5.30); RED CELL DISTRIBUTION WIDTH 13.2 % (11.6-17.2); REVIEW FLAG FINAL; WHITE BLOOD COUNT 5.7 TH/MM3 (4.0-11.0)
[2017-03-05 08:25] LABS: BICARBONATE 27.7 MEQ/L (21.0-32.0); POTASSIUM 3.4 MEQ/L (3.5-5.1)
--- NOTE | 2017-03-05 08:30 | PD.CARD.PN ---
Subjective Subjective Remarks Denies palpitations, CP, abdominal pain, nausea, recurrent syncope, dyspnea. Mild FLYNN. Mild lightheadedness upon standing. Objective Medications Item Value Date Time Diltiazem HCl 60 mg 03/02/17 1200 (Cardizem) Q6HR/PO 03/05/17 0607 Vital Signs / I&O Vital Signs Date Time Temp Pulse Resp B/P Pulse Ox O2 Delivery O2 Flow Rate FiO2 03/05/17 04:00 97.2 63 20 121/59 94 03/05/17 00:00 96.4 67 20 125/66 94 03/04/17 21:05 83 03/04/17 20:00 98.8 71 20 121/57 95 03/04/17 18:24 97.0 62 17 147/67 97 03/04/17 16:00 98.2 58 17 149/66 95 03/04/17 16:00 70 03/04/17 15:20 17 03/04/17 14:00 67 03/04/17 12:00 98.0 61 20 131/63 95 03/04/17 12:00 61 03/04/17 10:10 20 03/04/17 10:00 80 I/O 03/04/17 03/04/17 03/04/17 03/05/17 03/05/17 03/05/17 07:00 15:00 23:00 07:00 15:00 23:00 Intake Total 1021 ml 240 ml Output Total 600 ml Balance 421 ml 240 ml Intake Oral 360 ml 240 ml IV Total 661 ml Output Urine Total 600 ml # Voids 0 1 # Bowel Movements 0 0 Physical Exam GENERAL: Well developed, well nourished. No acute distress. HEENT: Jugular venous pressure is normal. CHEST: Lungs clear to auscultation bilaterally. Unlabored respiratory effort. CARDIAC: Regular rate and rhythm without S3, S4, or murmur. ABDOMEN: Soft, nontender, no hepatosplenomegaly. Bowel sounds present. EXTREMITIES: No clubbing, cyanosis, or edema. Laboratory Laboratory Tests Test 03/04/17 03/05/17 11:33 07:15 Troponin I 0.03 NG/ML White Blood Count 5.7 TH/MM3 Red Blood Count 4.16 MIL/MM3 Hemoglobin 12.8 GM/DL Hematocrit 38.3 % Mean Corpuscular Volume 92.0 FL Mean Corpuscular Hemoglobin 30.8 PG Mean Corpuscular Hemoglobin 33.5 % Concent Red Cell Distribution Width 13.2 % Platelet Count 219 TH/MM3 Mean Platelet Volume 8.8 FL Assessment and Plan Problem List: (1) Paroxysmal atrial fibrillation Assessment and Plan: Stable overnight. Remains in NSR. Echo reviewed, no abnormal findings. Patient's thromboembolic risk is low as her age is < 70, and no history of hypertension, diabetes, stroke, CHF. REC continue Cardizem, can change to CD form, 240 mg, on discharge OK to discharge from a cardiac standpoint; she can f/u with Dr. Mike in our [place] office in 3-4 weeks daily baby aspirin when OK from neurosurgical standpoint (2) Syncope Assessment and Plan: Stable since admission. No recurrent syncope. Remains in NSR. Suspect her episodes were vasovagal mediated though difficult to rule out other etiologies. REC cont to observe; if she has recurrent unexplained syncope in the future, rec implantable loop recorder Code Status full code Discussed Condition With patient, at length Problem Qualifiers (1) Syncope: Qualified Code: R55 - Syncope, unspecified syncope type Mc Salguero MD March 05, 2017 08:30
--- NOTE | 2017-03-05 08:34 | HHI.PR ---
Subjective Remarks interior specialist notes: This is a 66-year-old female with a relatively unremarkable past medical history who presents after syncopal fall. She reports that she was up early this morning and felt dizzy, and then passed out and hit her head. Her reports hearing a loud noise and coming in finding her way found on the floor. She was alert and oriented after the event. She was brought in by EMS. In emergency department she was found to be in new onset atrial fibrillation with rapid ventricular response. She was started on a diltiazem drip. She was taken for head CT and found to have a small traumatic subarachnoid hemorrhage. Critical-care medicine is consulted to evaluate and manage her new onset atrial fibrillation and her traumatic subarachnoid hemorrhage. I evaluated the patient and she denies chest pain, shortness of breath, prior episodes of palpitations or syncope. She does endorse headache and nausea. Denies vomiting or constipation diarrhea 03/04: Stable in her bedroom, no nausea, vomit or diarrhea, continue to complaint of headache, continue in sinus rhythm, her CHADS-VASc score is 2, will follow recommendations by adjudication specialist consulted, as per neurosurgery she will continue to have headache for the next three to four months. discussed with her Mr. Pelayo and her Sister Mrs. Cary, the patient is not eating properly will add some Ensure. 03/05: Okay to discharge home from Medicine and Cardiology standpoint, start Aspirin once okay with Neurosurgery. seen in her bedroom in the presence of her and Sister again today, Improving headache, continue with Dizziness when standing, asked for Physical Therapy evaluation, awaiting final by Neurosurgery for discharge. Objective Vital Signs Date Time Temp Pulse Resp B/P Pulse Ox O2 Delivery O2 Flow Rate FiO2 03/05/17 04:00 97.2 63 20 121/59 94 03/05/17 00:00 96.4 67 20 125/66 94 03/04/17 21:05 83 03/04/17 20:00 98.8 71 20 121/57 95 03/04/17 18:24 97.0 62 17 147/67 97 03/04/17 16:00 98.2 58 17 149/66 95 03/04/17 16:00 70 03/04/17 15:20 17 03/04/17 14:00 67 03/04/17 12:00 98.0 61 20 131/63 95 03/04/17 12:00 61 03/04/17 10:10 20 03/04/17 10:00 80 I/O 03/04/17 03/04/17 03/04/17 03/05/17 03/05/17 03/05/17 07:00 15:00 23:00 07:00 15:00 23:00 Intake Total 1021 ml 240 ml Output Total 600 ml Balance 421 ml 240 ml Intake Oral 360 ml 240 ml IV Total 661 ml Output Urine Total 600 ml # Voids 0 1 # Bowel Movements 0 0 Result Diagram: 03/05/1771403/05/17714 Imaging Last Impressions Head CT 03/03/17 0600 Signed Impressions: Service Date/Time: February 04:32 - CONCLUSION: Stable hypodensities in the white matter tracts bilaterally nonspecific finding. Very minimal increased density in the extra-axial right frontal supraorbital region could be a tiny amount of subarachnoid hemorrhage actually less impressive than the very subtle amount seen on the previous study Peter Morrison MD Chest X-Ray 03/02/1735 Signed Impressions: Service Date/Time: Thursday, March 02, 2017 07:48 - CONCLUSION: No acute disease. Alex Evans MD Procedures No procedures performed. Other Results Laboratory Tests Test 03/02/17 03/02/17 03/02/17 03/04/17 08:10 08:55 12:30 11:33 Neutrophils (%) (Auto) 61.7 % Lymphocytes (%) (Auto) 27.5 % Monocytes (%) (Auto) 7.8 % Eosinophils (%) (Auto) 2.3 % Basophils (%) (Auto) 0.7 % Neutrophils # (Auto) 4.7 TH/MM3 Lymphocytes # (Auto) 2.1 TH/MM3 Monocytes # (Auto) 0.6 TH/MM3 Eosinophils # (Auto) 0.2 TH/MM3 Basophils # (Auto) 0.1 TH/MM3 CBC Comment DIFF FINAL Differential Comment Prothrombin Time 11.6 SEC Prothromb Time International 1.0 RATIO Ratio Activated Partial 26.0 SEC Thromboplast Time Magnesium Level 1.7 MG/DL Total Bilirubin 0.3 MG/DL Aspartate Amino Transf 19 U/L (AST/SGOT) Alanine Aminotransferase 17 U/L (ALT/SGPT) Alkaline Phosphatase 40 U/L Total Creatine Kinase 88 U/L Total Protein 5.5 GM/DL Albumin 2.9 GM/DL Free Thyroxine 1.11 NG/DL Thyroid Stimulating Hormone 2.520 uIU/ML 3rd Gen Urine Color YELLOW Urine Turbidity CLEAR Urine pH 7.0 Urine Specific [place] 1.011 Urine Protein NEG mg/dL Urine Glucose (UA) NEG mg/dL Urine Ketones 10 mg/dL Urine Occult Blood TRACE Urine Nitrite NEG Urine Bilirubin NEG Urine Urobilinogen LESS THAN 2.0 MG/DL Urine Leukocyte Esterase NEG Urine RBC 2 /hpf Urine WBC 1 /hpf Urine Squamous Epithelial 2 /hpf Cells Urine Bacteria RARE /hpf Urine Mucus FEW /lpf Microscopic Urinalysis Comment CULT NOT INDICATED Urine Opiates Screen NEG Urine Barbiturates Screen NEG Urine Amphetamines Screen NEG Urine Benzodiazepines Screen NEG Urine Cocaine Screen NEG Urine Cannabinoids Screen NEG Nasal Screen MRSA (PCR) MRSA NOT DETECTED Troponin I 0.03 NG/ML Test 03/05/17 07:15 White Blood Count 5.7 TH/MM3 Red Blood Count 4.16 MIL/MM3 Hemoglobin 12.8 GM/DL Hematocrit 38.3 % Mean Corpuscular Volume 92.0 FL Mean Corpuscular Hemoglobin 30.8 PG Mean Corpuscular Hemoglobin 33.5 % Concent Red Cell Distribution Width 13.2 % Platelet Count 219 TH/MM3 Mean Platelet Volume 8.8 FL Sodium Level 144 MEQ/L Potassium Level 3.4 MEQ/L Chloride Level 109 MEQ/L Carbon Dioxide Level 27.7 MEQ/L Anion Gap 7 MEQ/L Blood Urea Nitrogen 7 MG/DL Creatinine 0.58 MG/DL Estimat Glomerular Filtration 104 ML/MIN Rate Random Glucose 83 MG/DL Calcium Level 7.8 MG/DL Objective Remarks GENERAL: No acute distress. HEENT: Right palpebral area is ecchymotic, Edema improved. Open her eye without difficulty. NECK: No JVD. Trachea midline. CHEST: Unlabored. Equal chest rise.. CARDIOVASCULAR: Sinus rhythm, no murmurs. ABDOMEN: Soft, nontender, nondistended. No guarding. MUSCULOSKELETAL: No Peripheral edema. Distal pulses 2+. NEUROLOGICAL: Alert and oriented x 3. no focal deficits. Medications and IVs Current Medications Medications (Trade) Dose Ordered Sig/[place]ylah Route Start Time Stop Time Status Last Admin (NS Flush) 2 ml UNSCH PRN IVF 03/02/17 07:45 (NS Flush) 2 ml UNSCH PRN IVF 03/02/17 07:45 Magnesium Oxide 800 mg 800 mg UNSCH PRN PO 03/02/17 09:30 Magnesium Sulfate 4 gm/Sodium Chloride 100 ml @ 50 mls/hr UNSCH PRN IV 03/02/17 09:30 (Magnesium Sulfate Inj/NS Inj) 100 ml @ 50 mls/hr UNSCH PRN IV 03/02/17 09:30 (K-Phos) 2,000 mg Q4H PRN PO 03/02/17 09:30 Potassium Phosphate 2000 mg 2,000 mg UNSCH PRN PO/TUBE 03/02/17 09:30 (Sodium Phosphate Inj/NS 250 ml Inj) 250 ml @ 42 mls/hr UNSCH PRN IV 03/02/17 09:30 Dextrose 25 ml 25 ml UNSCH PRN IV PUSH 03/02/17 09:30 (NS 1000 ml Inj) 1,000 ml @ 84 mls/hr [id number] IV 03/02/17 09:29 03/04/17 02:43 (Tylenol) 650 mg Q6H PRN PO 03/02/17 09:30 03/04/17 09:10 (Morphine Inj) 2 mg Q2H PRN IV 03/02/17 09:30 03/03/17 08:15 (Pepcid) 20 mg Q12HR PO 03/02/17 21:00 03/04/17 20:15 (Zofran Inj) 4 mg Q6H PRN IV 03/02/17 09:30 03/03/17 08:15 Miscellaneous Information 1 Q361D XX 03/02/17 09:30 03/02/17 09:30 (Chlorhexidine 2% Cloth) 3 pack Taper DAILY@04 TOP 03/03/17 04:00 02/27/18 03:59 03/04/17 04:00 (Chlorhexidine 2% Cloth) 3 pack UNSCH PRN TOP 03/02/17 09:30 (Cardizem) 60 mg Q6HR PO 03/02/17 12:00 03/05/17 06:07 (Keppra) 500 mg Q12HR PO 03/02/17 21:00 03/09/17 20:59 03/04/17 20:15 (Neurontin) 300 mg TID PO 03/04/17 13:00 03/04/17 17:44 (Deltasone) 7.5 mg DAILY PO 03/04/17 12:00 03/04/17 12:00 (Pill Splitter) 1 ea UNSCH PRN OTHER 03/04/17 12:00 03/04/17 17:45 ([place] 5-325 Mg) 1 tab Q4H PRN PO 03/04/17 15:00 03/05/17 06:25 ([place] 5-325 Mg) 2 tab Q4H PRN PO 03/04/17 15:00 03/05/17 02:43 A/P Assessment and Plan 1. Traumatic Subarachnoid hemorrhage -- frequent neuro checks, continue with headache as per Neurosurgery will continue with headache for the next three to four months. today complaint of Dizziness asked for PT evaluation. -- repeat head CT in 24h -- neurosurgery specialist following asked for new CT brain Improving hemorrhage. -- no anticoagulants for at least 7 days -- bedside swallow evaluation -- Keppra 500mg po q12h x 7 days -- Pepcid 2. New-onset atrial fibrillation with rapid ventricular response -- CHADS score 0 to continue on Aspirin 81 mg once cleared by Neurosurgery the patient states she is been taking Aspirin for the last 20 years. -- cannot anticoagulate for at least 7 days given traumatic SAH -- discontinued Diltiazem, continue Cardizem by mouth 60mg every six hours as per Cardiology to continue Cardizem and discharge on one dose of Cardizem 240 mg daily -- Echocardiogram EF 55-60% SCDs, no pharmacologic dvt prophylaxis given head bleed. Discussed with Patient and Nurse Miss Russo and with her Mr. Pelayo and her Sister Mrs. Cary all questions answered to the best of my abilities. Discharge Planning Okay from Medicine standpoint for discharge Krishna Omalley MD March 05, 2017 08:34
[2017-03-05] MEDS ORDERED: POTASSIUM CHLORIDE 20 MEQ CONTROLLED RELEASE TAB PO ONE ×2 (08:45→11:00)
[2017-03-05] MEDS: FAMOTIDINE 20 MG TAB PO SCH ×2 (09:20→22:35)
[2017-03-05] MEDS: GABAPENTIN 300 MG CAP PO SCH ×3 (09:20→17:42)
[2017-03-05] MEDS: levETIRAcetam 500 MG TAB PO SCH ×2 (09:20→22:35)
[2017-03-05] MEDS: predniSONE 5 MG TAB PO SCH (09:21)
[2017-03-05] MEDS: SODIUM CHLOR 0.9% 1000 ML INJ 1,000 ML IV SCH ×2 (09:22→20:54)
[2017-03-06] VITALS: BP 121/60; PULSE 59; RESP 20; TEMP 97.6; O2SAT 95
[2017-03-06] MEDS: DILTIAZEM HCL 60 MG TAB PO SCH ×3 (00:09→11:44)
[2017-03-06] MEDS: INSULIN NovoLIN REGULAR SUPPLEMENTAL SCALE SQ SCH ×3 (03:00→11:00)
[2017-03-06 04:00] VITALS: BP 137/70; PULSE 66; RESP 20; TEMP 97.1; O2SAT 96
[2017-03-06] MEDS: CHLORHEXIDINE GLUCONATE 2 % 1 PACK (2 CLOTHS) TOP SCH (04:00)
[2017-03-06] MEDS: ACETAMINOPHEN/HYDROcodone 325 MG/5 MG TAB PO PRN ×2 (05:14→09:44)
[2017-03-06 07:10] VITALS: PULSE 55
[2017-03-06 08:19] VITALS: BP 130/65; PULSE 58; RESP 18; TEMP 97; O2SAT 97
[2017-03-06 08:31] LABS: HEMATOCRIT 41.6 % (35.0-46.0); MEAN CELL VOLUME 92.4 FL (80.0-100.0); MEAN CORPUSCULAR HEMOGLOBIN 30.5 PG (27.0-34.0); PLATELET COUNT 253 TH/MM3 (150-450); RED CELL DISTRIBUTION WIDTH 13.3 % (11.6-17.2); REVIEW FLAG FINAL; WHITE BLOOD COUNT 6.9 TH/MM3 (4.0-11.0)
[2017-03-06] MEDS: levETIRAcetam 500 MG TAB PO SCH (08:31)
[2017-03-06] MEDS: GABAPENTIN 300 MG CAP PO SCH ×2 (08:31→11:44)
[2017-03-06] MEDS: predniSONE 5 MG TAB PO SCH (08:31)
[2017-03-06] MEDS: FAMOTIDINE 20 MG TAB PO SCH (08:31)
[2017-03-06] MEDS: SODIUM CHLOR 0.9% 1000 ML INJ 1,000 ML IV SCH (08:32)
[2017-03-06 08:52] LABS: BICARBONATE 27.7 MEQ/L (21.0-32.0); POTASSIUM 3.4 MEQ/L (3.5-5.1)
[2017-03-06] MEDS ORDERED: NEUR300C PO (11:13)
[2017-03-06] MEDS ORDERED: ASPI81CH CHEW (11:13)
[2017-03-06] MEDS ORDERED: levETIRAcetam PO (11:13)
[2017-03-06] MEDS ORDERED: HYDR-3516 PO (11:13)
[2017-03-06] MEDS ORDERED: CARD240C6 PO (11:14)
[2017-03-06] MEDS ORDERED: LEVE500T8 PO (11:37)
--- NOTE | 2017-03-06 11:38 | HHI.PR ---
Subjective Remarks emission specialist notes: This is a 66-year-old female with a relatively unremarkable past medical history who presents after syncopal fall. She reports that she was up early this morning and felt dizzy, and then passed out and hit her head. Her reports hearing a loud noise and coming in finding her way found on the floor. She was alert and oriented after the event. She was brought in by EMS. In emergency department she was found to be in new onset atrial fibrillation with rapid ventricular response. She was started on a diltiazem drip. She was taken for head CT and found to have a small traumatic subarachnoid hemorrhage. Critical-care medicine is consulted to evaluate and manage her new onset atrial fibrillation and her traumatic subarachnoid hemorrhage. I evaluated the patient and she denies chest pain, shortness of breath, prior episodes of palpitations or syncope. She does endorse headache and nausea. Denies vomiting or constipation diarrhea 03/04: Stable in her bedroom, no nausea, vomit or diarrhea, continue to complaint of headache, continue in sinus rhythm, her CHADS-VASc score is 2, will follow recommendations by behavior specialist consulted, as per neurosurgery she will continue to have headache for the next three to four months. discussed with her Mr. Pelayo and her Sister Mrs. Cary, the patient is not eating properly will add some Ensure. 03/05: Okay to discharge home from Medicine and Cardiology standpoint, start Aspirin once okay with Neurosurgery. seen in her bedroom in the presence of her and Sister again today, Improving headache, continue with Dizziness when standing, asked for Physical Therapy evaluation, awaiting final by Neurosurgery for discharge. 03/06: Seen in her bedroom in the presence of her and her Sister, okay from Neurosurgery for discharge, no need for HHC, improved Headache, no Nausea, vomit or diarrhea, okay to discharge home. Objective Vital Signs Date Time Temp Pulse Resp B/P Pulse Ox O2 Delivery O2 Flow Rate FiO2 03/06/17 08:19 97.0 58 18 130/65 97 03/06/17 07:10 55 03/06/17 04:00 97.1 66 20 137/70 96 03/06/17 00:00 97.6 59 20 121/60 95 03/05/17 23:00 72 03/05/17 20:00 97.2 64 20 139/66 96 03/05/17 16:31 98.8 70 18 140/66 94 03/05/17 16:21 17 03/05/17 12:14 97.4 64 18 142/64 94 I/O 03/05/17 03/05/17 03/05/17 03/06/17 03/06/17 03/06/17 07:00 15:00 23:00 07:00 15:00 23:00 Intake Total 360 ml Balance 360 ml Intake Oral 360 ml # Voids 1 4 1 # Bowel Movements 0 0 0 Result Diagram: 03/06/17 0800 03/06/17 08 Imaging Last Impressions Head CT 03/03/17 06 Signed Impressions: Service Date/Time: February 04:32 - CONCLUSION: Stable hypodensities in the white matter tracts bilaterally nonspecific finding. Very minimal increased density in the extra-axial right frontal supraorbital region could be a tiny amount of subarachnoid hemorrhage actually less impressive than the very subtle amount seen on the previous study Peter Morrison MD Chest X-Ray 03/02/17734 Signed Impressions: Service Date/Time: Thursday, March 02, 2017 07:48 - CONCLUSION: No acute disease. Alex Evans MD Procedures No procedures performed. Other Results Laboratory Tests Test 03/02/17 03/02/17 03/02/17 03/04/17 08:10 08:55 12:30 11:33 Neutrophils (%) (Auto) 61.7 % Lymphocytes (%) (Auto) 27.5 % Monocytes (%) (Auto) 7.8 % Eosinophils (%) (Auto) 2.3 % Basophils (%) (Auto) 0.7 % Neutrophils # (Auto) 4.7 TH/MM3 Lymphocytes # (Auto) 2.1 TH/MM3 Monocytes # (Auto) 0.6 TH/MM3 Eosinophils # (Auto) 0.2 TH/MM3 Basophils # (Auto) 0.1 TH/MM3 CBC Comment DIFF FINAL Differential Comment Prothrombin Time 11.6 SEC Prothromb Time International 1.0 RATIO Ratio Activated Partial 26.0 SEC Thromboplast Time Magnesium Level 1.7 MG/DL Total Bilirubin 0.3 MG/DL Aspartate Amino Transf 19 U/L (AST/SGOT) Alanine Aminotransferase 17 U/L (ALT/SGPT) Alkaline Phosphatase 40 U/L Total Creatine Kinase 88 U/L Total Protein 5.5 GM/DL Albumin 2.9 GM/DL Free Thyroxine 1.11 NG/DL Thyroid Stimulating Hormone 2.520 uIU/ML 3rd Gen Urine Color YELLOW Urine Turbidity CLEAR Urine pH 7.0 Urine Specific [place] 1.011 Urine Protein NEG mg/dL Urine Glucose (UA) NEG mg/dL Urine Ketones 10 mg/dL Urine Occult Blood TRACE Urine Nitrite NEG Urine Bilirubin NEG Urine Urobilinogen LESS THAN 2.0 MG/DL Urine Leukocyte Esterase NEG Urine RBC 2 /hpf Urine WBC 1 /hpf Urine Squamous Epithelial 2 /hpf Cells Urine Bacteria RARE /hpf Urine Mucus FEW /lpf Microscopic Urinalysis Comment CULT NOT INDICATED Urine Opiates Screen NEG Urine Barbiturates Screen NEG Urine Amphetamines Screen NEG Urine Benzodiazepines Screen NEG Urine Cocaine Screen NEG Urine Cannabinoids Screen NEG Nasal Screen MRSA (PCR) MRSA NOT DETECTED Troponin I 0.03 NG/ML Test 03/06/17 08:00 White Blood Count 6.9 TH/MM3 Red Blood Count 4.50 MIL/MM3 Hemoglobin 13.7 GM/DL Hematocrit 41.6 % Mean Corpuscular Volume 92.4 FL Mean Corpuscular Hemoglobin 30.5 PG Mean Corpuscular Hemoglobin 33.0 % Concent Red Cell Distribution Width 13.3 % Platelet Count 253 TH/MM3 Mean Platelet Volume 8.0 FL Sodium Level 142 MEQ/L Potassium Level 3.4 MEQ/L Chloride Level 106 MEQ/L Carbon Dioxide Level 27.7 MEQ/L Anion Gap 8 MEQ/L Blood Urea Nitrogen 9 MG/DL Creatinine 0.54 MG/DL Estimat Glomerular Filtration 113 ML/MIN Rate Random Glucose 89 MG/DL Calcium Level 8.5 MG/DL Objective Remarks GENERAL: No acute distress. HEENT: Right palpebral area is ecchymotic, Edema improved. Open her eye without difficulty. NECK: No JVD. Trachea midline. CHEST: Unlabored. Equal chest rise.. CARDIOVASCULAR: Sinus rhythm, no murmurs. ABDOMEN: Soft, nontender, nondistended. No guarding. MUSCULOSKELETAL: No Peripheral edema. Distal pulses 2+. NEUROLOGICAL: Alert and oriented x 3. no focal deficits. Medications and IVs Current Medications Medications (Trade) Dose Ordered Sig/Kylah Route Start Time Stop Time Status Last Admin (NS Flush) 2 ml UNSCH PRN IVF 03/02/17 07:45 (NS Flush) 2 ml UNSCH PRN IVF 03/02/17 07:45 Magnesium Oxide 800 mg 800 mg UNSCH PRN PO 03/02/17 09:30 Magnesium Sulfate 4 gm/Sodium Chloride 100 ml @ 50 mls/hr UNSCH PRN IV 03/02/17 09:30 (Magnesium Sulfate Inj/NS Inj) 100 ml @ 50 mls/hr UNSCH PRN IV 03/02/17 09:30 (K-Phos) 2,000 mg Q4H PRN PO 03/02/17 09:30 Potassium Phosphate 2000 mg 2,000 mg UNSCH PRN PO/TUBE 03/02/17 09:30 (Sodium Phosphate Inj/NS 250 ml Inj) 250 ml @ 42 mls/hr UNSCH PRN IV 03/02/17 09:30 Dextrose 25 ml 25 ml UNSCH PRN IV PUSH 03/02/17 09:30 (NS 1000 ml Inj) 1,000 ml @ 84 mls/hr [id number] IV 03/02/17 09:29 03/05/17 09:22 (Tylenol) 650 mg Q6H PRN PO 03/02/17 09:30 03/04/17 09:10 (Morphine Inj) 2 mg Q2H PRN IV 03/02/17 09:30 03/03/17 08:15 (Pepcid) 20 mg Q12HR PO 03/02/17 21:00 03/06/17 08:31 (Zofran Inj) 4 mg Q6H PRN IV 03/02/17 09:30 03/03/17 08:15 Miscellaneous Information 1 [id number] XX 03/02/17 09:30 03/02/17 09:30 (Chlorhexidine 2% Cloth) 3 pack Taper DAILY@04 TOP 03/03/17 04:00 02/27/18 03:59 03/04/17 04:00 (Chlorhexidine 2% Cloth) 3 pack UNSCH PRN TOP 03/02/17 09:30 (Cardizem) 60 mg Q6HR PO 03/02/17 12:00 03/06/17 05:13 (Keppra) 500 mg Q12HR PO 03/02/17 21:00 03/09/17 20:59 03/06/17 08:31 (Neurontin) 300 mg TID PO 03/04/17 13:00 03/06/17 08:31 (Deltasone) 7.5 mg DAILY PO 03/04/17 12:00 03/06/17 08:31 (Pill Splitter) 1 ea UNSCH PRN OTHER 03/04/17 12:00 03/04/17 17:45 ([place] 5-325 Mg) 1 tab Q4H PRN PO 03/04/17 15:00 03/06/17 09:44 ([place] 5-325 Mg) 2 tab Q4H PRN PO 03/04/17 15:00 03/05/17 02:43 A/P Assessment and Plan 1. Traumatic Subarachnoid hemorrhage -- frequent neuro checks, continue with headache as per Neurosurgery will continue with headache for the next three to four months. today complaint of Dizziness asked for PT evaluation. -- repeat head CT in 24h -- neurosurgery specialist following asked for new CT brain Improving hemorrhage. -- as per Neurosurgery to re start Aspirin in seven days. -- Continue Keppra 500mg po q12h x 7 days 2. New-onset atrial fibrillation with rapid ventricular response -- CHADS score 0 to continue on Aspirin 81 mg once cleared by Neurosurgery the patient states she is been taking Aspirin for the last 20 years. -- cannot anticoagulate for at least 7 days given traumatic SAH -- discontinued Diltiazem, continue Cardizem by mouth 60mg every six hours as per Cardiology to continue Cardizem and discharge on one dose of Cardizem 240 mg daily -- Echocardiogram EF 55-60% SCDs, no pharmacologic dvt prophylaxis given head bleed. Discussed with Patient and Nurse Miss Jackson and with her Mr. Pelayo and her Sister Mrs. Cary all questions answered to the best of my abilities. Discharge Planning Discharge Home today. Krishna Omalley MD March 06, 2017 11:38
--- NOTE | 2017-03-06 11:41 | HHI.DS ---
Discharge Summary Admission Date March 02, 2017 at 09:30 Discharge Date: March 06, 2017 Admitting Diagnosis syncope/new-onset A. fib/SAH (1) Subarachnoid hemorrhage ICD Code: I60.9 Diagnosis: Principal (2) Syncope ICD Code: R55 Diagnosis: Principal (3) Paroxysmal atrial fibrillation ICD Code: I48.0 Diagnosis: Principal (4) New onset a-fib ICD Code: I48.91 Diagnosis: Principal Procedures No procedures performed Brief History - From Admission This is a 66-year-old female with a relatively unremarkable past medical history who presents after syncopal fall. She reports that she was up early this morning and felt dizzy, and then passed out and hit her head. Her reports hearing a loud noise and coming in finding her way found on the floor. She was alert and oriented after the event. She was brought in by EMS. In emergency department she was found to be in new onset atrial fibrillation with rapid ventricular response. She was started on a diltiazem drip. She was taken for head CT and found to have a small traumatic subarachnoid hemorrhage. Critical-care medicine is consulted to evaluate and manage her new onset atrial fibrillation and her traumatic subarachnoid hemorrhage. I evaluated the patient and she denies chest pain, shortness of breath, prior episodes of palpitations or syncope. She does endorse headache and nausea. Denies vomiting or constipation diarrhea CBC/BMP: 03/06/17 0800 03/06/17 0800 Significant Findings Laboratory Tests Test 03/04/17 03/05/17 03/06/17 03:23 07:15 08:00 Sodium Level 146 MEQ/L (136-145) Chloride Level 111 MEQ/L 109 MEQ/L (98-107) (98-107) Calcium Level 7.6 MG/DL 7.8 MG/DL (8.5-10.1) (8.5-10.1) Potassium Level 3.4 MEQ/L 3.4 MEQ/L (3.5-5.1) (3.5-5.1) Imaging Last Impressions Head CT 03/03/17 0600 Signed Impressions: Service Date/Time: February 04:32 - CONCLUSION: Stable hypodensities in the white matter tracts bilaterally nonspecific finding. Very minimal increased density in the extra-axial right frontal supraorbital region could be a tiny amount of subarachnoid hemorrhage actually less impressive than the very subtle amount seen on the previous study Peter Morrison MD Chest X-Ray 03/02/17 0735 Signed Impressions: Service Date/Time: Thursday, March 02, 2017 07:48 - CONCLUSION: No acute disease. Alex Evans MD PE at Discharge GENERAL: No acute distress. HEENT: Right palpebral area is ecchymotic, Edema improved. Open her eye without difficulty. NECK: No JVD. Trachea midline. CHEST: Unlabored. Equal chest rise.. CARDIOVASCULAR: Sinus rhythm, no murmurs. ABDOMEN: Soft, nontender, nondistended. No guarding. MUSCULOSKELETAL: No Peripheral edema. Distal pulses 2+. NEUROLOGICAL: Alert and oriented x 3. no focal deficits. Hospital Course software applications specialist notes: This is a 66-year-old female with a relatively unremarkable past medical history who presents after syncopal fall. She reports that she was up early this morning and felt dizzy, and then passed out and hit her head. Her reports hearing a loud noise and coming in finding her way found on the floor. She was alert and oriented after the event. She was brought in by EMS. In emergency department she was found to be in new onset atrial fibrillation with rapid ventricular response. She was started on a diltiazem drip. She was taken for head CT and found to have a small traumatic subarachnoid hemorrhage. Critical-care medicine is consulted to evaluate and manage her new onset atrial fibrillation and her traumatic subarachnoid hemorrhage. I evaluated the patient and she denies chest pain, shortness of breath, prior episodes of palpitations or syncope. She does endorse headache and nausea. Denies vomiting or constipation diarrhea 03/04: Stable in her bedroom, no nausea, vomit or diarrhea, continue to complaint of headache, continue in sinus rhythm, her CHADS-VASc score is 2, will follow recommendations by 3d specialist consulted, as per neurosurgery she will continue to have headache for the next three to four months. discussed with her Mr. Pelayo and her Sister Mrs. Cary, the patient is not eating properly will add some Ensure. 03/05: Okay to discharge home from Medicine and Cardiology standpoint, start Aspirin once okay with Neurosurgery. seen in her bedroom in the presence of her and Sister again today, Improving headache, continue with Dizziness when standing, asked for Physical Therapy evaluation, awaiting final by Neurosurgery for discharge. 03/06: Seen in her bedroom in the presence of her and her Sister, okay from Neurosurgery for discharge, no need for HHC, improved Headache, no Nausea, vomit or diarrhea, okay to discharge home. Assessment and Plan 1. Traumatic Subarachnoid hemorrhage -- frequent neuro checks, continue with headache as per Neurosurgery will continue with headache for the next three to four months. today complaint of Dizziness asked for PT evaluation. -- repeat head CT in 24h -- neurosurgery specialist following asked for new CT brain Improving hemorrhage. -- as per Neurosurgery to re start Aspirin in seven days. -- Continue Keppra 500mg po q12h x 7 days 2. New-onset atrial fibrillation with rapid ventricular response -- CHADS score 0 to continue on Aspirin 81 mg once cleared by Neurosurgery the patient states she is been taking Aspirin for the last 20 years. -- cannot anticoagulate for at least 7 days given traumatic SAH -- discontinued Diltiazem, continue Cardizem by mouth 60mg every six hours as per Cardiology to continue Cardizem and discharge on one dose of Cardizem 240 mg daily -- Echocardiogram EF 55-60% SCDs, no pharmacologic dvt prophylaxis given head bleed. Discussed with Patient and Nurse Miss Jackson and with her Mr. Pelayo and her Sister Mrs. Cary all questions answered to the best of my abilities. Discharge Planning Discharge Home today. Pt Condition on Discharge: Good Discharge Disposition: Discharge Home Discharge Time: > 30 minutes Discharge Instructions DIET: Follow Instructions for: Heart Healthy Diet Activities you can perform: Regular-No Restrictions Krishna Omalley MD March 06, 2017 11:41
[2017-03-06 12:06] VITALS: BP 134/73; PULSE 66; RESP 18; TEMP 96.7; O2SAT 96
== END 2017-03-06 13:08 | disposition home or self-care (01) | DRG 87 ==
LOC: NEPE 07:22 → NEDA 09:30 → N03B 10:51 → N05A 03-04 18:01
PROVIDERS: ADMIT Internal Medicine; ATTEND Internal Medicine
DX: S06.6X0A Traumatic subarachnoid hemorrhage without loss of consciousness, initial encounter (principal); R56.9 Unspecified convulsions; I48.0 Paroxysmal atrial fibrillation; W18.30XA Fall on same level, unspecified, initial encounter; Y92.009 Unspecified place in unspecified non-institutional (private) residence as the place of occurrence of the external cause; E87.6 Hypokalemia; M35.3 Polymyalgia rheumatica; Z79.82 Long term (current) use of aspirin
CPT/HCPCS: 70450; 71010; 80048; 80053; 80307; 81001; 82550; 82948; 83735; 84132; 84439; 84443; 84484; 85025; 85027; 85610; 85730; 87641; 93005; 93306; 94150; 94640; 94667; 94668; 96361; 96365; 96375; J2270; J2405; J3480; J7030; J7512